=== PATIENT | female | born 1995 | race African-American/Black ===

== ENCOUNTER 2024-07-12 06:57 | Emergency (ER) | payer BC, SELFPAY ==
--- NOTE | ~2024-07-12 | CT_ITS ---
EXAMINATION: CTA chest PE abdomen pel DATE: 07/12/2024 09:24 INDICATION: COVID and prior pulmonary emboli presenting with abdominal pain, fevers chills and nausea . TECHNIQUE: Computed tomography (CT) pulmonary angiogram of the chest was performed with 100 mL Omnipa que-350 intravenous contrast. Additional 3D reconstructions utilizing coronal maximum intensity proje ction (MIP) were performed. CT of the abdomen and pelvis was performed with intravenous contrast util izing the same contrast bolus following a short delay. Automated exposure control and iterative recon struction technique were employed. The dose-length product was 1804.64 mGy-cm. COMPARISON: None FINDINGS: Chest: No pulmonary embolism. No pneumonia, pulmonary edema, pleural effusion or pneumothorax. Heart size is normal. No pericardial effusion. Thoracic aorta is normal in caliber with no dissection. Small amoun t of residual thymic tissue in the anterior mediastinum. No pathologically enlarged thoracic lymphade nopathy. 1.7 x 1.0 cm subcutaneous nodule with smooth margins at the upper inner right breast. Bones are unremarkable. Abdomen/pelvis: Liver, gallbladder, spleen, pancreas, bilateral adrenal glands and kidneys are normal. Bowels includi ng the appendix are normal. Decompressed bladder is unremarkable. The uterus is not identified and lyn s likely been surgically resected. 2.0 cm peripherally enhancing corpus luteum cyst at the right ovar y. Trace amount of likely physiologic free fluid in the deep pelvis. No abscess or free intraperitone al gas. No pathologically enlarged abdominal or pelvic lymphadenopathy. Mild lumbar levocurvature wit h mild spondylosis. IMPRESSION: 1. No pulmonary embolism or other acute cardiopulmonary disease. 2. 2 cm right ovarian corpus luteum cyst. No acute intra-abdominal/pelvic process. Reviewed, dictated and finalized at location B. T GRINDER IMPRESSION: 1. No pulmonary embolism or other acute cardiopulmonary disease. 2. 2 cm right ovarian corpus luteum cyst. No acute intra-abdominal/pelvic proce ss.
[2024-07-12 07:18] VITALS: BP 132/92; PULSE 89; RESP 20; TEMP 37.5; O2SAT 100
[2024-07-12 08:30] LABS: Influenza A QL RT-PCR Negative (Negative); Influenza B QL RT-PCR Negative (Negative); RSV RNA, RT-PCR Negative (Negative); SARS-CoV-2 RNA PCR Positive (Negative)
--- NOTE | 2024-07-12 08:33 | ED.GENADULT ---
HPI - General Adult General Chief complaint: Upper Respiratory Infection Stated complaint: headache, body aches, diarrhea Time Seen by Provider: 07/12/24 08:14 History of Present Illness HPI narrative: 29-year-old female presented to the emergency department for evaluation for nausea vomiting diarrhea and associated abdominal pain. Patient reports she began having symptoms on Thursday morning. Patient reports the symptoms have persisted. 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 Patient does have a prior history of pulmonary embolisms approximately 2 years ago secondary to estrogen that she was taking at that time, patient is no longer taking estrogen. Patient also has history of hysterectomy in September of last year. Related Data Allergies Allergy/AdvReac Type Severity Reaction Status Date / Time No Known Allergies Allergy Verified 07/12/24 06:58 Review of Systems Review of Systems: All systems reviewed & are unremarkable except as noted in HPI and below Exam Narrative: APPEARANCE: Ill-appearing HEAD: normocephalic, atraumatic. EYES: PERRLA/EOMI, conjunctivae clear. NOSE: Normal no drainage EARS:TMS clear with good light reflex. THROAT: Pharynx clear, no exudate. NECK: Supple. No adenopathy, no masses. RESPIRATORY: Airway patent, respirations nonlabored. Clear to auscultation bilaterally, no rales, rhonchi, wheezing. CARDIOVASCULAR: Regular rate and rhythm without murmurs rubs or gallops. ABDOMINAL: Diffuse abdominal tenderness MUSCULOSKELETAL: Moves all extremities. Strength/ROM intact, No edema, No calf tenderness. NEURO: Alert. Cranial nerves II through XII intact. Good gait. Good coordination SKIN: Warm, dry. Normal Color Course Vital Signs Vital signs: Vital Signs Temperature 99.5 F 07/12/24 07:18 Pulse Rate 89 07/12/24 07:18 Respiratory Rate 20 07/12/24 07:18 Blood Pressure 132/92 H 07/12/24 07:18 Pulse Oximetry 100 07/12/24 07:18 Oxygen Delivery Room Air 07/12/24 07:18 Temperature 99.5 F 07/12/24 07:18 Pulse Rate 80 07/12/24 11:00 Respiratory Rate 16 07/12/24 11:00 Blood Pressure 131/84 07/12/24 11:00 Pulse Oximetry 100 07/12/24 11:00 Oxygen Delivery Room Air 07/12/24 07:18 Medical Decision Making MDM Narrative Medical decision making narrative: 29-year-old female presents to the emergency department for evaluation for abdominal pain. Patient is afebrile with no leukocytosis and hemoglobin of 13.5. INR is 1.1. Patient has no significant abnormalities on her CMP patient had normal T bili AST ALT alk-phos and lipase. Urine did have high red blood cells and some bacteria. Patient was positive for COVID. Due to patient's prior history pulmonary embolism CTA was ordered and abdomen pelvis was added due to her abdominal pain. CTA showed No pulmonary embolism or other acute cardiopulmonary disease. 2 cm right ovarian corpus luteum cyst. No acute intra-abdominal/pelvic process. Patient did have hematuria but no evidence of ureteral calculi. Patient was encouraged close follow-up with her primary care physician regarding hematuria. Patient family were updated on the results of the workup they are comfortable the plan for discharge and close follow-up. All questions concerns were addressed. Differential Diagnosis Differential Diagnosis: COVID, RSV, influenza, UTI, hematuria Vital Signs Vital Signs: Vital Signs Temperature 99.5 F 07/12/24 07:18 Pulse Rate 89 07/12/24 07:18 Respiratory Rate 20 07/12/24 07:18 Blood Pressure 132/92 H 07/12/24 07:18 Pulse Oximetry 100 07/12/24 07:18 Oxygen Delivery Room Air 07/12/24 07:18 Temperature 99.5 F 07/12/24 07:18 Pulse Rate 80 07/12/24 11:00 Respiratory Rate 16 07/12/24 11:00 Blood Pressure 131/84 07/12/24 11:00 Pulse Oximetry 100 07/12/24 11:00 Oxygen Delivery Room Air 07/12/24 07:18 Lab Data Lab results reviewed: Yes I reviewed the patient's lab results. 07/12/24 08:54 07/12/24 08:54 Labs: Lab Results 07/12/24 07/12/24 07/12/24 Range/Units 07:48 08:54 09:11 WBC 6.5 (4.5-10.0) K/mm3 RBC 5.21 (4.2-5.4) M/mm3 Hgb 13.5 (12.0-15.0) g/dL Hct 42.9 (37.0-47.0) % MCV 82.3 (80-100) fl MCH 25.9 L (26-34) pg MCHC 31.5 L (32-36) g/dl RDW 15.1 H (11.5-14.5) % Plt Count 183 (150-375) k/mm3 MPV 10.3 (7.4-10.4) fl Immature Gran % (Auto) 0.3 (0-0.5) % Neut % (Auto) 74.3 H (45.5-73.1) % Lymph % (Auto) 11.5 L (18.3-44.2) % [place] % (Auto) 13.4 H (2.6-8.5) % Eos % (Auto) 0.0 (0-4.4) % Baso % (Auto) 0.5 (0.2-1.2) % Lymph # (Auto) 0.75 L (0.9-3.2) K/mm3 [place] # (Auto) 0.9 H (0.1-0.6) K/mm3 Eos # (Auto) 0.0 (0-0.3) K/mm3 Baso # (Auto) 0.0 (0.0-0.1) K/mm3 Abs Immat Gran (auto) 0.02 (0.00-0.031) K/mm3 Absolute Neuts (auto) 4.8 (1.3-6.7) K/mm3 Absolute Nucleated RBC 0.000 (0.0-0.012) K/mm3 Nucleated RBC % 0.0 (0.0-0.2) % PT 14.3 (11.1-14.7) Seconds INR 1.1 APTT 21.4 L (22.3-36.8) Seconds Sodium 136 L (137-145) mmol/L Potassium 4.2 (3.4-5.0) mmol/L Chloride 101 (98-107) mmol/L Carbon Dioxide 26 (22-30) mmol/L Anion Gap 9 (4-12) mmol/L BUN 9 (7-17) mg/dL Creatinine 0.90 (0.7-1.0) mg/dL Estim Creat Clear Calc 106 ml/min Estimated GFR > 60 (59 - ) Glucose 90 (65-110) mg/dL Lactic Acid 1.0 (0.7-2.0) mmol/L Calcium 8.9 (8.4-10.2) mg/dL Total Bilirubin 0.6 (0.2-1.3) mg/dL AST 30 (14-36) U/L ALT 30 (6-35) U/L Alkaline Phosphatase 80 (38-126) U/L Total Protein 8.0 (6.3-8.2) g/dL Albumin 4.2 (3.5-5.1) g/dL Lipase 71 (23-300) U/L Urine Color Yellow (Yellow) Urine Appearance Cloudy H (Clear) Urine pH 7.5 (5.0-9.0) Ur Specific [place] 1.021 (1.001-1.035) Urine Protein Negative (Negative) mg/dL Urine Glucose (UA) Negative (Negative) mg/dL Urine Ketones Negative (Negative) mg/dL Ur Blood (Man) Non-hemolyzed trace H (Negative) Urine Nitrate Negative (Negative) Urine Bilirubin Negative (Negative) Urine Urobilinogen 1.0 (<2.0) mg/dL Leukocyte Esterase Rfl Negative (Negative) JAYLEN/UL Urine RBC 6-10 H (0-2) /hpf Urine WBC 0-5 (0-3) /hpf Ur Squamous Epith Cells Moderate (Few) /hpf Urine Bacteria 1+ H /hpf Urine Casts 0-2 Influenza A (RT-PCR) Negative (Negative) Influenza B (RT-PCR) Negative (Negative) RSV (RT-PCR) Negative (Negative) SARS-CoV-2 RNA (RT-PCR) Positive A (Negative) Imaging Data Radiologist's impression: Impressions Chest/Abdomen/Pelvis CTA 07/12/24 09:35 IMPRESSION: 1. No pulmonary embolism or other acute cardiopulmonary disease. 2. 2 cm right ovarian corpus luteum cyst. No acute intra-abdominal/pelvic process. Discharge Plan Discharge Clinical Impression: COVID, Nausea vomiting and diarrhea, Hematuria Patient Disposition: Home, Self-Care Condition: Stable Instructions: Antibiotic Form, COVID-19 (Coronavirus Disease 2019) (ED) Additional Instructions: You did test positive for COVID. Zofran as needed for nausea control. Liquid diet for the next 1-3 days. Tylenol and ibuprofen for pain control. Have close follow-up with her primary care physician. Albuterol inhaler for shortness breath and Tessalon Perles for cough. Patient Language: Namibian Prescriptions: New benzonatate 100 mg capsule 100 mg PO TID PRN (Reason: cough) Qty: 14 0RF albuterol sulfate 90 mcg/actuation HFA aerosol inhaler 1 puff inhalation QID Qty: 6.7 0RF ondansetron 4 mg tablet,disintegrating 4 mg PO Q8H PRN (Reason: nausea and vomiting) Qty: 14 0RF Follow-up/Referrals: PHYSICIAN,SOFTWARE QUALITY ASSURANCE ENGINEER [Non-Staff] -
[2024-07-12 08:53] VITALS: BP 123/87; PULSE 96; RESP 24; O2SAT 100
[2024-07-12] MEDS: ONDANSETRON INJ 4 MG/2 ML VIAL IV PUSH (08:56)
[2024-07-12] MEDS: HYDROmorphone HCL INJ (*CRX) 1 MG/ML SYR 0.5 MG IV PUSH (08:56)
[2024-07-12] MEDS: SODIUM CHLORIDE 0.9% IV 1,000 ML 999 ML IV CONT (08:56)
--- OUTSIDE RECORDS SUMMARY | 2024-07-12 09:06 | XMS_ITS | Data Portability ---
Author Organization [facility] Address [address] [place] [address] Assessment No assessment recorded. Plan of Treatment Reminders Order Date Submit Date Provider Last Modified By Organization Details Last Modified Time Details Appointments None recorded. Lab rapid strep group A, throat 2014 015 KASH In-Office Order, Internal Use Only DO Not Attach Compendium DO Not Attach Compendium, Do Not Delete/merge, [id number] 5 17:13:34 CT + NG RNA, urine 2014 015 [facility], [address] [place] [address], [address], [place], [address], 5 17:24:42 HIV (1+2) Ab, rapid, unspecified specimen 2014 015 KASH In-Office Order, Internal Use Only DO Not Attach Compendium DO Not Attach Compendium, Do Not Delete/merge, [id number] 5 17:12:53 urinalysis, dipstick 2014 KASH In-Office Order, Internal Use Only DO Not Attach Compendium DO Not Attach Compendium, Do Not Delete/merge, [id number] 5 17:14:28 test, urine 2014 015 KASH In-Office Order, Internal Use Only DO Not Attach Compendium DO Not Attach Compendium, Do Not Delete/merge, [id number] 5 17:13:10 Referral None recorded. Procedures None recorded. Surgeries None recorded. Imaging None recorded. Medication Orders None recorded. Patient TargetsNo targets recorded. Patient Instructions Encounter Date Encounter Id Patient Instructions Last Modified By Organization Details Last Modified Time 04/25/2015 [id number] when your child IS overweight: care instructions [email or web address] Not available 04/25/2015 17:12:16 frequent urination: care instructions [email or web address] Not available 04/25/2015 17:12:16 Reason for Referral None Reported. Results Created Date Observation Date Name Description Value Unit Range Abnormal Flag Note LastModifiedBy Organization Detail LastModifiedTime 04/25/20 15 04/25/2015 pregn jerrica test, urine HCG negati ve Not Available In-Office Order Internal Use Only DO Not Attach Compendium DO Not Attach Compendium, Do Not Delete/merge, [id number] 04/25/2015 15:17:45 04/25/20 15 04/25/2015 HIV (1+2) Ab, rapid , unspe cifie d speci men Rapid HIV negati ve Not Available In-Office Order Internal Use Only DO Not Attach Compendium DO Not Attach Compendium, Do Not Delete/merge, [id number] 04/25/2015 15:17:45 04/25/20 15 04/25/2015 urina lysis , dipst ick Leukocytes Negati ve Not Available In-Office Order Internal Use Only DO Not Attach Compendium DO Not Attach Compendium, Do Not Delete/merge, [id number] 04/25/2015 15:10:08 04/25/20 15 04/25/2015 urina lysis , dipst ick Nitrite negati ve Not Available In-Office Order Internal Use Only DO Not Attach Compendium DO Not Attach Compendium, Do Not Delete/merge, [id number] 04/25/2015 15:10:08 04/25/20 15 04/25/2015 urina lysis , dipst ick Urobilinogen .2 Not Available In-Of fice Order Internal Use Only DO Not Attach Compendium DO Not Attach Compendium, Do Not Delete/merge, [id number] 04/25/2015 15:10:08 04/25/20 15 04/25/2015 urina lysis , dipst ick Protein Negati ve Not Available In-Office Order Internal Use Only DO Not Attach Compendium DO Not Attach Compendium, Do Not Delete/merge, [id number] 04/25/2015 15:10:08 04/25/20 15 04/25/2015 urina lysis , dipst ick pH 7.0 Not Available In-Office Order Internal Use Only DO Not Attach Compendium DO Not Attach Compendium, Do Not Delete/merge, 04/25/2015 15:10:08 04/25/20 15 04/25/2015 urina lysis , dipst ick Blood Negati ve Not Available In-Office Order Internal Use Only DO Not Attach Compendium DO Not Attach Compendium, Do Not Delete/merge, 04/25/2015 15:10:08 04/25/20 15 04/25/2015 urina lysis , dipst ick Specific [place] 1.010 Not Available In-Off ice Order Internal Use Only DO Not Attach Compendium DO Not Attach Compendium, Do Not Delete/merge, 04/25/2015 15:10:08 04/25/20 15 04/25/2015 urina lysis , dipst ick Ketone Negati ve Not Available In-Office Order Internal Use Only DO Not Attach Compendium DO Not Attach Compendium, Do Not Delete/merge, 04/25/2015 15:10:08 04/25/20 15 04/25/2015 urina lysis , dipst ick Bilirubin Negati ve Not Available In-Office Order Internal Use Only DO Not Attach Compendium DO Not Attach Compendium, Do Not Delete/merge, 04/25/2015 15:10:08 04/25/20 15 04/25/2015 urina lysis , dipst ick Glucose Negati ve Not Available In-Office Order Internal Use Only DO Not Attach Compendium DO Not Attach Compendium, Do Not Delete/merge, 04/25/2015 15:10:08 04/25/20 15 04/25/2015 urina lysis , dipst ick Appearance Clear Not Available In-Offi ce Order Internal Use Only DO Not Attach Compendium DO Not Attach Compendium, Do Not Delete/merge, 04/25/2015 15:10:08 04/25/20 15 04/25/2015 urina lysis , dipst ick Color Yellow Not Available In-Office Order Internal Use Only DO Not Attach Compendium DO Not Attach Compendium, Do Not Delete/merge, 04/25/2015 15:10:08 04/25/20 15 04/25/2015 rapid strep group A, throa t Strep negati ve Not Available In-Office Order Internal Use Only DO Not Attach Compendium DO Not Attach Compendium, Do Not Delete/merge, [id number] 04/25/2015 15:10:08 04/25/20 15 04/26/2015 chlam ydia + gonor mirta DNA panel , unspe cifie d speci men chlamydia trachomatis, RASHAD Negati ve negati ve Not Available [facility] (Lab) [address] [place], [address], 04/26/2015 14:30:26 04/25/20 15 04/26/2015 chlam ydia + gonor mirta DNA panel , unspe cifie d speci men neisseria gonorrhoeae, RASHAD Negati ve negati ve Not Available [facility] (Lab) [address], [place], [address], 04/26/2015 14:30:26 04/25/20 15 04/26/2015 chlam ydia + gonor mirta DNA panel , unspe cifie d speci men please note: Commen t Accep table speci mens for this test are male ureth ral swab, endoc ervic al swab and liqui d based pap speci mens, vagin al swabs in APTIM A trans ports and first void urine . See Rachel mustafa of [employer] for test numbe r for recta l and phary ngeal speci mens. Not Available [facility] (Lab) [address], [place], [address], 04/26/2015 14:30:26 Result Notes None recorded. Problems Name Problem SNOMED Code Status Onset Date Resolution Date Notes Provider Name and Address Organization Details Recorded Time Obesity 341857215 Active Latesha Raya MD Attn: Gonzalo irizarry,[address] [facility], [place], [address], [facility] 5 15:23:43 Pharyngitis 823816245 Active Latesha Raya MD Attn: Gonzalo irizarry,[address] [facility], [place], [address], [facility] 5 15:23:43 Increased frequency of urination 509482564 Active Latesha Raya MD Attn: Gonzalo irizarry,[address] [facility], [place], [address], [facility] 5 15:23:43 Problem Notes None recorded. Medical Equipment None Reported. Allergies No known drug allergies Medications Name Sig Start Date Stop Date Status Note LastModified by Organization Details LastModified Time hydrocodone 5 mg-acetamino phen 325 mg tablet TAKE 1 TABLET BY MOUTH EVERY 6 HOURS NEEDED FOR PAIN active Not Available Not Available No t Available omeprazole 40 mg capsule,avila yed release TAKE 1 CAPSULE BY MOUTH DAILY BEFORE BREAKFAST active Not Available Not Available No t Available oxycodone-ac etaminophen 5 mg-325 mg tablet TAKE 1 TABLET BY MOUTH EVERY 4 HOURS NEEDED active Not Available Not Available No t Available ibuprofen 600 mg tablet TAKE 1 TABLET BY MOUTH EVERY 6 HOURS active Not Available Not Available No t Available enoxaparin 40 mg/0.4 mL subcutaneous syringe INJECT 40MG SUBCUTANEOU SLY ONCE DAILY active Not Available Not Available No t Available nitrofuranto in monohydrate/ macrocrystal s 100 mg capsule TAKE 1 CAPSULE BY MOUTH EVERY 12 HOURS active Not Available Not Available No t Available Vitals Date Recorded Body height Body mass index (BMI) Body temperature Body weight Systolic blood pressure Diastolic blood pressure Provider Name and Address Organization Details Last Updated DateTime 5 165.1 cm 35.6 kg/m2 97.8 [degF] 07606.7 6718 g 118 mm[Hg] 62 mm[Hg] Ila Yan MA [facility] 5 14:53:27 Social History Question Answer Notes LastModified by Organizat ion Details LastModified Time Tobacco Smoking Status Never Smoker Latesha Hemphill MD Attn: Mildred,[address] [facility], [place], [address], [facility] 04/25/2015 15:19:45 What Type Of Diet Are You Following? REGULAR Information not available 04/25/2015 What Is Your Home Situation? Mother Information not available 04/25/2015 Car Seat Type Or Seat Belt? Seat Belt Information not available 04/25/2015 Parent Involvement? Both Parents Involved [email or web address] Information not available 04/25/2015 Do You Have Any Siblings? Yes [email or web address] Information not available 04/25/2015 Year In School 12 Informatio n not available 04/25/2015 Sex: Unknown Functional Status None recorded. Mental Status None recorded. Family History Nothing Reported. Medical History No medical history recorded. Gynecological HistoryNo gynecological history recorded. Obstetrics History GPAL:G 0 P 0 0 0 0 Immunizations Vaccine Type Date Status Note Provider Nam e and Address Organization Details Recorded Time Influenza, split virus, quadrivalent, PF 5 completed Not Available [facility] 07[facility]2019 02:49:52 Meningococcal MCV4O 5 completed Not Available [facility] 07/02/2019 02:39:16 HPV9 5 completed Not Available [facility] 07/02/2019 02:32:03 Past Encounters Encounter ID Performer Location Encounter Start Date Encounter Closed Date Diagnosis/Indication Diagnosis SNOMED-CT Code Diagnosis ICD10 Code Diagnosis Note [id number] Latesha buitrago MD [facility] [address] [place] [address] 04/25/2015 14:31:13 05/16/2015 17:21:13 Well child 700125891 Z00.129 Anticipato ry guidance given physical form given to pt x 1 [place] out of state MCV4#2, Flu, HPV#3 today Obesity 931659495 E66.9 Pharyngitis 695247073 J0 2.9 rapid strep neg Increased frequency of urination 809113646 R35.0 u/a neg urine hcg neg Health Concerns Section Related Observation LastModified by Organization Detai ls LastModified Time None Recorded Concern Status LastModified by Organization Details LastModified Time None Recorded Advance Directives Directive None Recorded Payers Encounter Date Sequence Insurance Name Policy Number Policy Coronel Covered Member ID Coronel Member ID Guarantor Name 04/25/2015 1 [facility] - DOS PRIOR TO 2020 (MEDICAID REPLACEMENT - HMO) Erica Kaur [id number] Marina Lock Notes Date Note Type Note Provider Name and Address Organization Details Recorded Time 04/25/2015 text/html throat hurting on weekend; no fever; no v/d; 12th grade, peeing and pooping; peeing a lot; sleeping ok; wearing seatbelt; brushing teeth; work at [employer]; missed work thu and thursday Latesha Hemphill MD Attn: Accounting,[address] [place], [address], [place] [facility] 04/25/2015 15:24:06 OBGyn Episode No OBEpisode recorded.
--- OUTSIDE RECORDS SUMMARY | 2024-07-12 09:06 | XMS_ITS | Encounter Summary ---
Author Organization [facility] Address [address] [place] [address] Phone Care Team Providers Care Educational Audiologist Name Role Phone Provider, None Primary Care Provider Unavailabl e Encounter Details Date Type Department Care Team (Late st Contact Info) Description 06/11/2023 Lab Requisition [facility] Services [address] [place] [address] System, Referring Not In [place] Social History Tobacco Use Types Packs/Day Years Used Date Smoking Tobacco: Never Assessed Comments Unknown Sex and Gender Information Value Date Recorded Sex Assigned at Not on file Legal Sex Female 3:55 PM MANAGER STERILE Gender Identity Not on file Sexual Orientation Not on file documented as of this encounter Plan of Treatment Not on file documented as of this encounter Procedures Procedure Name Priority Date/Time Associated Diagnosis Comments QUANTIFERON-TB GOLD PLUS Routine 06/11/2023 3:03 PM MANAGER STERILE MMRV PANEL Routine 06/11/2023 3:03 PM MANAGER STERILE MUMPS IGG Routine 06/11/2023 3:03 PM MANAGER STERILE HERPES ZOSTER (VARICELLA) IGG Routine 06/11/2023 3:03 PM MANAGER STERILE RUBEOLA (MEASLES) IGG Routine 06/11/2023 3:03 PM MANAGER STERILE RUBELLA IMMUNITY IGG Routine 06/11/2023 3:03 PM MANAGER STERILE HEPATITIS B SURFACE ANTIBODY (HBSAB) Routine 06/11/2023 3:03 PM MANAGER STERILE documented in this encounter Results * (ABNORMAL) HERPES ZOSTER (VARICELLA) IGG (06/11/2023 3:03 PM MANAGER STERILE) VARICELLA ZOSTER IGG 0.6(L) >=1.1 AI 06/12/2023 4:22 AM MANAGER STERILE [facility] Blood No Phlebotomy Charged / Unknown 06/11/2023 3:03 PM MANAGER STERILE 06/11/2023 3:05 PM MANAGER STERILE Narrative [facility] - 06/12/2023 4:22 AM MANAGER STERILE <= 0.8 Negative. ??No detectable VZV IgG antibody. 0.9 - 1.0 Equivocal >=1.1 Positive Antibody testing was performed by multiplex flow immunoassay on the BioPlex platform. us Referring Not In System IMMUNOLOGY ORDERABLES Fi nal Result Performing Organization Address [facility] Co de Phone Number [facility] [address] [place] [address], [place] * RUBEOLA (MEASLES) IGG (06/11/2023 3:03 PM MANAGER STERILE) MEASLES AB IGG 4.8 >=1.1 AI 06/12/2023 4:22 AM MANAGER STERILE [facility] Blood No Phlebotomy Charged / Unknown 06/11/2023 3:03 PM MANAGER STERILE 06/11/2023 3:05 PM MANAGER STERILE Narrative [facility] - 06/12/2023 4:22 AM MANAGER STERILE <= 0.8 Negative. ??No detectable Measles IgG antibody. 0.9 - 1.0 Equivocal >=1.1 Positive Antibody testing was performed by multiplex flow immunoassay on the BioPlex platform. us Referring Not In System IMMUNOLOGY ORDERABLES Fi nal Result Performing Organization Address [facility] Co de Phone Number [facility] [address] [place] [address], [place] * RUBELLA IMMUNITY IGG (06/11/2023 3:03 PM MANAGER STERILE) RUBELLA IMMUNITY Immune Immune, Invalid 06/12/2023 4:22 AM MANAGER STERILE [facility] Blood No Phlebotomy Charged / Unknown 06/11/2023 3:03 PM MANAGER STERILE 06/11/2023 3:05 PM MANAGER STERILE Narrative [facility] - 06/12/2023 4:22 AM MANAGER STERILE Antibody testing was performed by multiplex flow immunoassay on the BioPlex platform. us Referring Not In System CHEMISTRY ORDERABLES Fin al Result Performing Organization Address [facility] Co de Phone Number [facility] [address] [place] [address], [place] * MUMPS IGG (06/11/2023 3:03 PM MANAGER STERILE) Mumps Ab IgG 3.1 >=1.1 AI 06/12/2023 4:22 AM MANAGER STERILE [facility] Blood No Phlebotomy Charged / Unknown 06/11/2023 3:03 PM MANAGER STERILE 06/11/2023 3:05 PM MANAGER STERILE Narrative [facility] - 06/12/2023 4:22 AM MANAGER STERILE <= 0.8 Negative. ??No detectable Mumps IgG antibody. 0.9 - 1.0 Equivocal >=1.1 Positive Antibody testing was performed by multiplex flow immunoassay on the BioPlex platform. us Referring Not In System IMMUNOLOGY ORDERABLES Fi nal Result Performing Organization Address [facility] Co de Phone Number [facility] [address] [place] [address], [place] * QUANTIFERON-TB GOLD PLUS (06/11/2023 3:03 PM MANAGER STERILE) NIL CONTROL 0.02 <8.01 IU/mL 06/14/2023 12:05 PM MANAGER STERILE [facility] TB ANTIGEN 1 0.03 <0.35 IU/mL 06/14/2023 12:05 PM MANAGER STERILE [facility] TB ANTIGEN 2 0.00 <0.35 IU/mL 06/14/2023 12:05 PM MANAGER STERILE [facility] MITOGEN CONTROL 9.98 >0.49 IU/mL 06/14/20 12:05 PM [facility] INTEPRETATION TB NEGATIVE NEGATIVE, NEGATIVE (TB antigen response less than 25% of internal negative control value) 06/14/2023 12:05 PM [facility] Comment:No immune response t o Mycobacterium tuberculosis antigens was noted. M. tuberculosis infection unlikely. Blood No Phlebotomy Charged / Unknown 06/11/2023 3:03 PM MANAGER STERILE 06/11/2023 3:05 PM MANAGER STERILE Narrative [facility] - 06/14/2023 12:05 PM MANAGER STERILE A POSITIVE QUANTIFERON-TB GOLD PLUS RESULT SHOULD NOT BE THE SOLE OR DEFINITIVE BASIS FOR DETERMINING INFECTION WITH M.TUBERCULOSIS. Diagnosing or excluding tuberculosis disease, and assessing the probability of LTBI, requires a combination of epidemiological, historical, medical and diagnostic findings (e.g., acid fast bacilli (AFB) smear and culture, chest xray) that should be taken into account when interpreting QFT-Plus results. Furthermore, the magnitude of the measured gamma interferon level cannot be correlated to stage or degree of infection, level of immune responsiveness, or likelihood for progression to active disease. The Nil control adjusts for background (e.g., elevated levels of circulating gamma interferon or presence of heterophile antibodies). The Mitogen control serves as an internal positive control and verifies each specimen tested can produce a gamma interferon response. Low mitogen may occur with insufficient lymphocytes, reduced lymphocyte activity due to improper specimen handling, filling/mixing of the mitogen tube, or inability of the patient's lymphocytes to generate gamma interferon. Infection with other Mycobacteria, including M. kansasii, M. szulgai, and M. marinum, may cause false positive results. A negative QuantiFERON-TB Gold Plus result does not preclude the possibility of M. tuberculosis infection or tuberculosis disease: false negative results can be due to incorrect blood sample collection/ improper handling of the specimen, stage of infection (e.g., specimen obtained prior to the development of cellular immune response), co-morbid conditions which affect immune function, or other individual immunological factors. The minimum number of lymphocytes required for a reliable test has not been established and may also be variable. Diagnostic testing for Mycobacterium tuberculosis using Interferon Gamma Release Assays should follow applicable published guidelines, including when testing in populations such as children, women, and HIV-infected or otherwise immunocompromised individuals. https://www.cdc.gov/tb/publications/guidelines/testing.htm us Referring Not In System IMMUNOLOGY ORDERABLES Fi nal Result Performing Organization Address [facility] Co de Phone Number [facility] [address] [place] [address], [place] * HEPATITIS B SURFACE ANTIBODY (HBSAB) (06/11/2023 3:03 PM MANAGER STERILE) HEPATITIS B SURFACE ANTIBODY <8.00 mIU/mL [facility] ARCH [id number] 06/11/2023 9:41 PM MANAGER STERILE [facility] Comment:Individual is consid ered not immune to HBV infection. Blood No Phlebotomy Charged / Unknown 06/11/2023 3:03 PM MANAGER STERILE 06/11/2023 3:05 PM MANAGER STERILE us Referring Not In System CHEMISTRY ORDERABLES Fin al Result Performing Organization Address [facility] Co de Phone Number [facility] [address] [place] [address], [place] documented in this encounter Visit Diagnoses Not on filedocumented in this encounter Care Teams Educational Audiologist Relationship Specialty Start Date End Date Provider, None [place] PCP - General 06/11/23 documented as of this encounter
--- OUTSIDE RECORDS SUMMARY | 2024-07-12 09:06 | XMS_ITS | Data Portability ---
Author Organization [facility] , [facility] Address [address] [place] [address] Assessment Encounter Date Assessment Date Assessment LastModified by Organization Details LastModified Time 09/12/2022 09/12/2022 AUB: Need records from Dr. Valentine and Gianna Need for labs, US and EMB discussed. Baseline w/u ordered. Options for bleeding control - NSAIDs + E free medical tx recommended initially until w/u complete. Desires to be on Depo for now- ordered. MO: encouraged lifestyle modifications and wt reduction Return for US and EMB [email or web address] Not available 11/20/2022 23:12:34 Plan of Treatment Reminders Order Date Submit Date Provider Last Modified By Organization Details Last Modified Time Details Appointments None recorded. Lab prolactin, serum 2022 023 [facility], [address] [place], [address], 3 16:00:08 CMP, serum or plasma 2022 023 [facility], [address] [place], [address], 3 16:00:23 CBC w/ auto diff 2022 023 [facility], [address] [place], [address], 3 16:00:16 lh + FSH, serum 2022 023 [facility], [address] [place], [address], 3 16:00:22 TSH, serum, reflex free T4 2022 023 [facility], [address] [place], [address], 3 16:00:30 hemoglobin A1c, QN, blood [address] [facility], [address] [place], [address], 3 16:00:26 dhea-sulfat e, serum [address] [facility], [address] [place], [address], 3 16:00:10 testosteron e, free + total, serum 2022 023 [employer] [facility], [address] [place], [address], 3 11:09:31 PT/PTT, plasma 2022 023 [employer] [facility], [address] [place], [address], 3 11:09:31 Referral None recorded. Procedures None recorded. Surgeries None recorded. Imaging US, transvagina l 2022 023 [email or web address] Not available 3 15:52:11 Medication Orders Depo-[employer] a 150 mg/mL intramuscul ar syringe 2022 023 [facility] [address] In [facility], [address] [place], [address], 3 15:18:34 Patient TargetsNo targets recorded. Patient InstructionsNo instructions recorded. Reason for Referral None Reported. Results Created Date Observation Date Name Description Value Unit Range Abnormal Flag Note LastModifiedBy Organization Detail LastModifiedTime 09/27/19 23 09/26/2022 PROLA CTIN prolactin Not Available [facility] [address] [place], [address], 09/26/2022 16:00:08 09/27/19 23 09/26/2022 DHEA- S DHEA-S Not Available [address], [address], 09/26/2022 16:00:10 09/27/19 23 09/26/2022 CBC (INCL UDES DIFF/ PLT) CBC (includes diff/plt) Not Available [facility] [address], [address], 09/26/2022 16:00:16 09/27/19 23 09/26/2022 FSH AND LH FSH and LH Not Available [address], [address], 09/26/2022 16:00:22 09/27/19 23 09/26/2022 COMPR EHENS CELESTINA METAB OLIC PANEL comprehensiv e metabolic panel Not Available [facility] and [address], [address], 09/26/2022 16:00:23 09/27/19 23 09/26/2022 HEMOG LOBIN A1C hemoglobin A1C Not Available [address], [address], 09/26/2022 16:00:26 09/27/19 23 09/26/2022 TSH W/ REFLE X TSH w/ reflex Not Available [facility] and [address], [address], 09/26/2022 16:00:30 Result Notes None recorded. Procedures Surgical History Date Name Laterality Status Provider Name and Address Organization Details Recorded Time Dilation and curettage completed ELYSSA SALAZAR MD [address] [facility], [place], [address], [facility] [employer] 09/12/2022 14:49:25 Imaging Results None recorded. Procedure Notes None recorded. Medical Equipment None Reported. Allergies No known drug allergies Medications Name Sig Start Date Stop Date Status Note LastModified by Organization Details LastModified Time medroxyproge sterone 10 mg tablet TAKE 1 TABLET BY MOUTH DAILY active Not Available Not Available Not Available Depo-Provera 150 mg/mL intramuscula r syringe Inject 1 mL every 3 months by intramuscul ar route. 2022 active Not Available Not Available Not Avai lable Vitals Date Recorded Body height Provider Name an d Address Organization Details Last Updated DateTime 09/12/2022 157.48 cm Suha Shady [facility] [facility] 09/12/2022 14:18:49 Date Recorded Body mass index (BMI) Body weight Provider Name and Address Organization Details Last Updated DateTime 09/12/2022 51.1 kg/m2 394008.43 g [facility] [employer] [facility] 09/12/2022 14:18:58 Date Recorded Body temperature Provider Name a nd Address Organization Details Last Updated DateTime 09/12/2022 97.1 [degF] [facility] 09/12/2022 14:19:01 Date Recorded Systolic blood pressure Diastolic blood pressure Provider Name and Address Organization Details Last Updated DateTime 09/12/2022 120 mm[Hg] 82 mm[Hg] [facility] 09/12/2022 14:18:47 Social History None recorded. Functional Status None recorded. Mental Status None recorded. Family History Nothing Reported. Medical History No medical history recorded. Gynecological HistoryNo gynecological history recorded. Obstetrics History GPAL:G 0 P 0 0 0 0 Past Encounters Encounter ID Performer Location Encounter Start Date Encounter Closed Date Diagnosis/Indication Diagnosis SNOMED-CT Code Diagnosis ICD10 Code Diagnosis Note [id number] ELYSSA MCKEON MD [facility] [address] [place] [address] 09/12/2022 12:03:19 09/15/2022 13:29:39 Abnormal uterine bleeding 9362892490 9100 N93.9 Body mass index 40+ - severely obese 362868601 Z68.43 History of pulmonary embolus 314411480 Z86.711 Health Concerns Section Related Observation LastModified by Organization Detai ls LastModified Time None Recorded Concern Status LastModified by Organization Details LastModified Time None Recorded Advance Directives Directive None Recorded Payers Encounter Date Sequence Insurance Name Policy Number Policy Coronel Covered Member ID Coronel Member ID Guarantor Name 09/12/2022 1 [facility] (MEDICAID REPLACEMENT - HMO) [id number] Erica Kaur [id number] Erica Kaur Notes Date Note Type Note Provider Name and Address Organization Details Recorded Time 09/12/2022 text/html Pt referred by for fibroid consult. pt reports bleeding non-stop for months. PHQ9 score 14. Reports hx of DVT/ PE in 06/2021 following 3 m of OCPs. Been off anticoagulation and P after 3 m.Not sexually active currently Bleeding irregular with heavy flow with clots. Has had blood transfusions secondary to anemia. US 06/2021 @ [facility]: uterus 9.9 cmx 6.2 cmx 8.0 cm. ET 1 cm, heterogenous. Likely fibroids. Normal adnexa.MRI pelvis: Fibroid uterus, largest 5x4 cm IM fibroid on the right side of uterine body. ELYSSA SALAZAR MD [address] [facility], [place], [address], [facility] - [facility] [facility] 11/20/2022 23:12:54 OBGyn Episode No OBEpisode recorded.
--- OUTSIDE RECORDS SUMMARY | 2024-07-12 09:06 | XMS_ITS | Patient Health Summary ---
Author Organization [facility] Address [address] [address] Care Team Providers Care Employee Relations Representative Name Role Phone Adelaide Beth Josefina ANAND-WOOL BRUSHER Unavailable [phone] Note from [facility],non-owned Affiliates and Associated Physician Practices is amultiple site organization consisting of ambulatory clinics and hospital sitesin [place], [place], [place] and [place]. This disclosure is being madepursuant to the Care Everywhere program and may not contain all information available regarding this patient. Last updated 18.[facility] Allergies * Estrogens(Other) -High Criticality Medications * Be aware that medications may not be up to date on this document. Alwaysverify current medications with the patient. * albuterol HFA (Proventil; Ventolin; Proair) 108 (90 Base) MCG/ACT inhaler (Started 07/19/2021) Inhale 2 (two) puffs by mouth every 6 hours as needed * ibuprofen (Motrin) 600 MG tablet(Started 09/16/2023) Take 1 (one) tablet by mouth every 6 hours 1 refill by 09/15/2024 * omeprazole (PriLOSEC) 40 MG capsule(Started 09/25/2023) Take 1 (one) capsule by mouth daily before breakfast * metroNIDAZOLE vaginal (Metrogel - Vaginal) 0.75 % vaginal gel(Started 04/20/2024) Insert 1 applicator into the vagina at bedtime Active Problems Problem Noted Date Diagnosed Date Iron deficiency anemia due to chronic blood loss 09/15/2023 History of pulmonary embolus (PE) 09/07/2023 Menorrhagia 08/08/2013 Constipation 08/08/2013 Abdominal pain, LLQ (left lower quadrant) 2013 Anemia 08/08/2013 Screening examination for venereal disease 08/08 Obesity 08/08/2013 Social History Tobacco Use Types Packs/Day Years Used Date Smoking Tobacco: Never Smokeless Tobacco: Never Tobacco Cessation:Counseling Given: Not Answered Alcohol Use Standard Drinks/Week Comments No 0 (1 standard drink = 0.6 oz pur e alcohol) PHQ-2 Answer Date Recorded Patient Health Questionnaire-2 Score 0 04/28/2024 Sex and Gender Information Value Date Recorded Sex Assigned at Not on file Gender Identity Not on file Sexual Orientation Not on file Last Filed Vital Signs Vital Sign Reading Time Taken Comments Blood Pressure 120/70 06/27/2024 4:05 PM SIZE WORKER Pulse 98 09/25/2023 10:55 PM CDT Temperature 36.8 ??C (98.2 ??F) 09/25/2023 5:42 PM CD T Respiratory Rate 18 09/25/2023 10:55 PM CDT Oxygen Saturation 98% 09/25/2023 10:55 PM CDT Inhaled Oxygen Concentration - - Weight 112.9 kg (249 lb) 06/27/2024 4:05 PM SIZE WORKER Height 162.6 cm (5' 4 ) 06/27/2024 4:05 PM SIZE WORKER Body Mass Index 42.74 06/27/2024 4:05 PM SIZE WORKER Procedures * HIV-1 HIV-2 ANTIBODY + HIV P24 AG PANEL(Performed 04/18/2024) Performed for STD exposure * HERPES SIMPLEX 1+2 AB IGG SPEC(Performed 04/18/2024) Performed for STD exposure * RPR(Performed 04/18/2024) Performed for STD exposure * HEPATITIS C ANTIBODY(Performed 04/18/2024) Performed for STD exposure * HEPATITIS B SURFACE ANTIGEN W RFLX CONFIRMATION(Performed 04/18/2024) Performed for STD exposure * VAGINITIS PLUS (BV CA CT NG TRICH)(Performed 04/18/2024) Performed for STD exposure * CARDIAC EKG ORDER(Performed 09/28/2023) * URINE MICROSCOPIC ONLY REFLEX TO CULTURE(Performed 09/25/2023) * URINALYSIS REFLEX MICROSCOPIC REFLEX CULTURE(Performed 09/25/2023) * CULTURE URINE(Performed 09/25/2023) * TROPONIN-I HIGH SENSITIVE REFLEX 1HOUR(Performed 09/25/2023) * TROPONIN-I HIGH SENSITIVE BASELINE + 1HR(Performed 09/25/2023) * CT ABDOMEN PELVIS W CONTRAST(Performed 09/25/2023) Performed for Chest pain, unspecified type * CT ANGIO CHEST PULM EMBOLISM(Performed 09/25/2023) Performed for Chest pain, unspecified type * LACTIC ACID BLOOD REFLEX TO REPEAT(Performed 09/25/2023) * COMPREHENSIVE METABOLIC PANEL(Performed 09/25/2023) * CBC W AUTO DIFFERENTIAL(Performed 09/25/2023) * EKG 12-LEAD(Performed 09/25/2023) Performed for Chest pain, unspecified type * CARDIAC RHYTHM STRIP ORDER(Performed 09/18/2023) * BASIC METABOLIC PANEL (CALCIUM TOTAL)(Performed 09/16/2023) * CBC W AUTO DIFFERENTIAL(Performed 09/16/2023) * PATHOLOGY TISSUE EXAM (STL)(Performed 09/15/2023) Performed for Diagnosis unknown * LAB MISC TEST(Performed 09/15/2023) * FL TLH W/T/O 250 G OR LESS(Performed 09/15/2023) * CBC W AUTO DIFFERENTIAL(Performed 09/15/2023) Performed for Iron deficiency anemia due to chronic blood loss * BLOOD TYPE VERIFICATION(Performed 09/15/2023) * ANTIBODY IDENTIFICATION(Performed 09/15/2023) * TYPE + SCREEN PANEL(Performed 09/15/2023) * HCG URINE QUALITATIVE - POCT (IP) INTERFACED(Performed 09/15/2023) * HCG URINE QUAL POCT NOTIFICATION(Performed 09/15/2023) Performed for Iron deficiency anemia due to chronic blood loss * CBC W AUTO DIFFERENTIAL(Performed 08/08/2023) Performed for Abnormal uterine bleeding (AUB) * FERRITIN(Performed 04/23/2023) Performed for Abnormal uterine bleeding (AUB), Iron deficiency anemia due to chronic blood loss, Intramural leiomyoma of uterus * IRON + TRANSFERRIN PANEL(Performed 04/23/2023) Performed for Abnormal uterine bleeding (AUB), Iron deficiency anemia due to chronic blood loss, Intramural leiomyoma of uterus * CBC W AUTO DIFFERENTIAL(Performed 04/23/2023) Performed for Abnormal uterine bleeding (AUB), Iron deficiency anemia due to chronic blood loss, Intramural leiomyoma of uterus * CBC W AUTO DIFFERENTIAL(Performed 04/03/2023) Performed for Abnormal uterine bleeding (AUB), Iron deficiency anemia due to chronic blood loss, Intramural leiomyoma of uterus * CBC W AUTO DIFFERENTIAL(Performed 12/25/2022) Performed for Abnormal uterine bleeding (AUB), Iron deficiency anemia due to chronic blood loss, Intramural leiomyoma of uterus * PATHOLOGY SPECIMEN(Performed 12/08/2022) Performed for Abnormal uterine bleeding (AUB), Iron deficiency anemia due to chronic blood loss * US TRANSVAGINAL NON OB(Performed 11/27/2022) Performed for Iron deficiency anemia due to chronic blood loss, Abnormal uterine bleeding (AUB) * CHLAMYDIA + GC AMPLIFIED PROBE(Performed 11/17/2022) Performed for Iron deficiency anemia due to chronic blood loss, Abnormal uterine bleeding (AUB) * PAP IG LB RFLX HPV APTIMA ASCU(Performed 11/17/2022) Performed for Iron deficiency anemia due to chronic blood loss, Abnormal uterine bleeding (AUB) * IMAGING/RADIOLOGY/XRAY RESULTS ORDER(Performed 07/11/2021) * IMAGING/RADIOLOGY/XRAY RESULTS ORDER(Performed 07/11/2021) * LAB RESULTS ORDER(Performed 08/13/2013) * CHLAMYDIA + GC AMPLIFIED PROBE(Performed 08/08/2013) * VITAMIN D 25-HYDROXY(Performed 08/08/2013) Performed for Menorrhagia * CBC W AUTO DIFFERENTIAL(Performed 08/08/2013) Performed for Menorrhagia * LIPID PROFILE(Performed 08/08/2013) Performed for Menorrhagia * FSH(Performed 08/08/2013) Performed for Menorrhagia * TESTOSTERONE FREE+TOT FEM/CHLD HYPOGNDL MALE(Performed 08/08/2013) Performed for Menorrhagia * LH(Performed 08/08/2013) Performed for Menorrhagia * HCG URINE QUALITATIVE - POCT (IP) BEAKER(Performed 08/03/2013) * US PELVIS W DOPPLER OVARIES(Performed 08/03/2013) Performed for Menorrhagia, Abdominal pain, right lower quadrant * DIFFERENTIAL MANUAL(Performed 08/03/2013) * PT PTT PANEL(Performed 08/03/2013) * LIPASE BLOOD(Performed 08/03/2013) * AMYLASE BLOOD(Performed 08/03/2013) * COMPREHENSIVE METABOLIC PANEL(Performed 08/03/2013) * CBC W AUTO DIFFERENTIAL(Performed 08/03/2013) * DRUG ABUSE URINE PANEL(Performed 08/03/2013) * URINALYSIS REFLEX TO MICROSCOPIC NO CULTURE(Performed 08/03/2013) * CULTURE URINE(Performed 08/03/2013) * URINE MICROSCOPIC ONLY(Performed 08/03/2013) * MRI LOWER EXT ANY JOINT NON CONTRAST LEFT(Performed 04/14/2013) Performed for Pain in joint, lower leg * XR KNEE LEFT 2VW OR LESS(Performed 03/16/2013) * XR TIBIA FIBULA LEFT 2VW(Performed 11/13/2012) Performed for Fall, Left knee pain, Left ankle pain * HCG URINE QUALITATIVE - POCT (IP) BEAKER(Performed 11/13/2012) Results * HIV-1 HIV-2 ANTIBODY + HIV P24 AG PANEL (04/18/2024 4:04 PM SIZE WORKER) HIV Screen 4th Generation w Reflex Non Reactive Non Reactive [facility] INSURANCE BILL Comment: HIV-1/HIV-2 antibodies and HIV-1 p24 antigen were NOT detected. There is no laboratory evidence of HIV infection. HIV Negative Blood BLOOD SPECIMEN / Unknown 04/18/2024 4:04 PM SIZE WORKER 04/18/2024 Narrative [facility] INSURANCE BILL - 04/19/2024 9:13 AM SIZE WORKER Performed at: ??[address] ??[id number] [employer] Pumper: Nick Yusuf PhD, Phone: ??[phone] Salvador Garcia MD LAB - CHEMISTRY ORD ERABLES [facility] INSURANCE BILL [address] [place] [address] * (ABNORMAL) HERPES SIMPLEX 1+2 AB IGG SPEC (04/18/2024 4:04 PM SIZE WORKER) Herpes Simplex Virus I Antibody IgG Type Specific Index Reactive(A) Non Reactive [facility] INSURANCE BILL Comment: Please note reference interval change HSV-1 IgG testing performed using the [employer] HSV-1 IgG assay. Herpes Simplex Virus 2 Antibody IgG Type Specific Non Reactive Non Reactive [facility] INSURANCE BILL Comment: Please note reference interval change Current guidelines and recommendations do not recommend routine screening for HSV-2 in asymptomatic individuals, including those that are . The detection of HSV-2 IgG antibodies in a single sample indicates previous exposure to HSV-2 but does not give information as to the site of HSV infection or the timing of exposure. The predictive value of positive and negative results depends on the population's prevalence and the pretest likelihood of HSV-2. HSV-2 IgG testing performed using the [employer] HSV-2 IgG assay. Blood BLOOD SPECIMEN / Unknown 04/18/2024 4:04 PM SIZE WORKER 04/18/2024 Narrative [facility] INSURANCE BILL - 04/19/2024 9:13 AM SIZE WORKER Performed at: ??[address] ??[id number] [employer]: Nick Yusuf PhD, Phone: ??[phone] Salvador Garcia MD LAB - SEROLOGY ORDE KELLI Performing Organization Address [facility]/ZIP Co de Phone Number [facility] INSURANCE BILL [address] [place] [phone] * RPR (04/18/2024 4:04 PM SIZE WORKER) RPR Non Reactive Non Reactive [facility] INSURANCE BILL Blood BLOOD SPECIMEN / Unknown 04/18/2024 4:04 PM SIZE WORKER 04/18/2024 Narrative [facility] INSURANCE BILL - 04/19/2024 10:14 AM SIZE WORKER Performed at: ??[address] ??[id number] [employer]: Nick Yusuf PhD, Phone: ??[phone] Salvador Garcia MD LAB - CHEMISTRY ORD ERABLES Performing Organization Address City/[facility]/ZIP Co de Phone Number [facility] INSURANCE BILL [address] [place] [address] * HEPATITIS B SURFACE ANTIGEN W RFLX CONFIRMATION (04/18/2024 4:04 PM SIZE WORKER) Hepatitis B Virus Surface Antigen Negative Negative [facility] INSURANCE BILL Blood BLOOD SPECIMEN / Unknown 04/18/2024 4:04 PM SIZE WORKER 04/18/2024 Narrative [facility] INSURANCE BILL - 04/19/2024 9:13 AM SIZE WORKER Performed at: ??01 - [facility] [address] ??[id number] [employer] P[employer]: Nick Yusuf PhD, Phone: ??[phone] Salvador Garcia MD LAB - CHEMISTRY ORD ERABLES Performing Organization Address [facility] Phone Number [facility] INSURANCE BILL [address] [place] [address] * HEPATITIS C ANTIBODY (04/18/2024 4:04 PM SIZE WORKER) Hepatitis C Antibody Non Reactive Non Reactive [facility] INSURANCE BILL Comment: HCV antibody alone does not differentiate between previously resolved infection and active infection. Equivocal and Reactive HCV antibody results should be followed up with an HCV RNA test to support the diagnosis of active HCV infection. Blood BLOOD SPECIMEN / Unknown 04/18/2024 4:04 PM SIZE WORKER 04/18/2024 Narrative [facility] INSURANCE BILL - 04/19/2024 9:13 AM SIZE WORKER Performed at: ??01 - [facility] ??[id number] [employer] P[employer]: Nick Yusuf PhD, Phone: [phone] Salvador Garcia MD LAB - CHEMISTRY ORD ERABLES Performing Organization Address [facility] Phone Number [facility] INSURANCE BILL [address] [place] [address] * (ABNORMAL) VAGINITIS PLUS (BV CA CT NG TRICH) (04/18/2024 3:48 PM SIZE WORKER) Atopobium vaginae Moderate - 1 Score [facility] INSURANCE BILL BVAB 2 High - 2(A) Score [facility] INSURANCE BILL Megashaera High - 2(A) Score [facility] INSURANCE BILL Comment: Calculate total score by adding the 3 individual bacterial vaginosis (BV) marker scores together. ??Total score is interpreted as follows: Total score 0-1: Indicates the absence of BV. Total score ?? 2: Indeterminate for BV. Additional clinical ? data should be evaluated to establish a ? diagnosis. Total score 3-6: Indicates the presence of BV. Nakia albicans RASHAD Negative Negative [facility] INSURANCE BILL Nakia glabrata RASHAD Negative Negative [facility] INSURANCE BILL Trichomonas vaginalis by RASHAD Negative Negative [facility] INSURANCE BILL Chlamydia Trachomatis RASHAD Negative Negative [facility] INSURANCE BILL GC RASHAD Negative Negative [facility] INSURANCE BILL Microbiology ENTIRE VAGINA / Unknown 04/18/2024 3:48 PM SIZE WORKER 04/18/2024 Comment:Vaginal Release to p a Narrative [facility] INSURANCE BILL - 04/20/2024 6:14 AM SIZE WORKER Test(s) 523775- ?Atopobium vaginae; 827598- ?BVAB 2; 085073- ?Megasphaera 1 was developed and its performance characteristics determined by [employer]. It has not been cleared or approved by the Food and Drug Administration. Test(s) 060360-Jdoikky albicans, RASHAD; 091385-Swazpny glabrata, RASHAD was developed and its performance characteristics determined by [employer]. It has not been cleared or approved by the Food and Drug Administration. Performed at: ??[address] ??[id number] [employer]: Jeny Glez MD, Phone: ??[phone] Salvador Garcia MD LAB - MICROBIOLOGY ORDERABLES Performing Organization Address City/State/[facility] Co de Phone Number [facility] INSURANCE BILL [address] [place] [address] * CARDIAC EKG ORDER (09/28/2023 10:18 PM CDT) Narrative 09/28/2023 10:18 PM CDT Ordered by an unspecified provider. Scanned Document CARDIAC SERVICES ORD ERABLES * (ABNORMAL) URINE MICROSCOPIC ONLY REFLEX TO CULTURE (09/25/2023 9:18 PM CDT) Reflex Status Culture to follow 09/25/2023 9:34 PM CDT [facility] RBC UA 6-10(A) 0 - 5 # /hpf 09/25/2023 9:34 PM CDT [facility] WBC UA 6-10(A) 0 - 5 # /hpf 09/25/2023 9:34 PM CDT [facility] Bacteria UA None Seen None Seen 09/25/2023 9:34 PM CDT [facility] Squamous Epithelial Cells 6-10(A) 0 - 5 /hpf 09/25/2023 9:34 PM CDT [facility] Urine URINE SPECIMEN OBTAINED BY CLEAN CATCH PROCEDURE / Unknown Collection / Unknown 09/25/2023 9:18 PM CDT 09/25/2023 9:23 PM CDT Narrative [facility] - 09/25/2023 9:34 PM CDT Janine Norwood WASTEWATER TREATMENT ENGINEER-WOOL BRUSHER LAB - URINALY SIS ORDERABLES [facility] [address] [place] [address] * (ABNORMAL) URINALYSIS REFLEX MICROSCOPIC REFLEX CULTURE (09/25/2023 9:18 PM CDT) Color UA Yellow Straw, Yellow 09/25/2023 9:33 PM CDT [facility] Clarity UA Clear Clear 09/25/2023 9:33 PM CDT [facility] Glucose UA Negative Negative 09/25/2023 9:33 PM CDT [facility] Bilirubin UA Negative Negative 09/25/2023 9:33 PM CDT [facility] Ketone UA Negative Negative 09/25/2023 9:33 PM CDT [facility] Specific [place] UA 1.010 1.005 - 1.030 09/25/2023 9:33 PM CDT [facility] Blood UA 3+(A) Negative 09/25/2023 9:33 PM CDT [facility] pH UA 5.5 5.0 - 8.0 pH 09/25/2023 9:33 PM CDT [facility] Protein UA Trace(A) Negative 09/25/2023 9:33 PM CDT [facility] Urobilinogen UA Negative Negative mg/dL 09/25/2023 9:33 PM CDT [facility] Nitrite UA Negative Negative 09/25/2023 9:33 PM CDT [facility] Leukocyte UA Trace(A) Negative 09/25/2023 9:33 PM CDT [facility] Urine Microscopy Urine microscopy to follow 09/25/2023 9:33 PM CDT [facility] Reflex Status Culture to follow 09/25/2023 9:33 PM CDT [facility] Urine URINE SPECIMEN OBTAINED BY CLEAN CATCH PROCEDURE / Unknown Collection / Unknown 09/25/2023 9:18 PM CDT 09/25/2023 9:23 PM CDT Janine Norwood [facility] - URINALY SIS ORDERABLES [facility] [place] [address] * CULTURE URINE (09/25/2023 9:18 PM CDT) Only the most recent of2 resultswithin the time period is included. Culture Urine <10,000 CFU/mL urogenital brittany MARK 09/27/2023 2:29 AM CDT [facility] Urine URINE SPECIMEN OBTAINED BY CLEAN CATCH PROCEDURE / Unknown Collection / Unknown 09/25/2023 9:18 PM CDT 09/25/2023 9:23 PM CDT Janine Norwood [facility] - MICROBI OLOGY ORDERABLES [facility] [address] [place] [address], [facility] [phone] * TROPONIN-I HIGH SENSITIVE REFLEX 1HOUR (09/25/2023 8:56 PM CDT) Troponin I High Sensitive 4 <=14 ng/L 09/25/2023 9:26 PM CDT [facility] Delta Troponin I HS 09/25/2023 9:26 PM CDT [facility] Comment:Delta value intentio sherie not calculated. Baseline to 1 hour specimen collection interval exceeded. Blood BLOOD SPECIMEN / Unknown Venipuncture / Unknown 09/25/2023 8:56 PM CDT 09/25/2023 9:00 PM CDT Janine Norwood WASTEWATER TREATMENT ENGINEER-WOOL BRUSHER LAB - ASSURANCE AUDITOR RY ORDERABLES [facility] [address] [address] * TROPONIN-I HIGH SENSITIVE BASELINE + 1HR (09/25/2023 7:09 PM CDT) Troponin I High Sensitive 3 <=14 ng/L 09/25/2023 7:35 PM CDT [facility] Blood BLOOD SPECIMEN / Unknown Venipuncture / Unknown 09/25/2023 7:09 PM CDT 09/25/2023 7:09 PM CDT Janine Norwood WASTEWATER TREATMENT ENGINEER-WOOL BRUSHER LAB - ASSURANCE AUDITOR RY ORDERABLES Performing Organization Address [facility] Co de Phone Number [facility] [address] [address] * CT ABDOMEN PELVIS W CONTRAST (09/25/2023 6:40 PM CDT) Anatomical Region Laterality Modality Abdomen, Pelvis Computed Tomogra phy 09/25/2023 7:19 PM CDT Impressions 09/25/2023 7:25 PM CDT IMPRESSION: 1.No evidence of pulmonary embolism. 2.Surgical changes of hysterectomy with trace residual inflammatory changes in the surgical bed. > Interpreting Provider: Soila Celestin MD on 09/25/2023 7:25 PM Narrative 09/25/2023 7:25 PM CDT PROCEDURE(s): CT ABDOMEN PELVIS W CONTRAST, CT ANGIO CHEST PULM EMBOLISM DATE AND TIME OF EXAM(s): 09/25/2023 6:40 PM INDICATION(s): R07.9: Chest pain, unspecified. Chest tightness. Abdominal pain. History of PE. Surgical history of hysterectomy on 2023. Fevers. Chills. COMPARISON(s): None available. TECHNIQUE: CT of the chest was performed, following intravenous contrast administration. Contrast injection rate and acquisition timing were optimized for opacification of the pulmonary arteries for evaluation of pulmonary embolism. Images were obtained at inspiration and viewed in axial (including thin sections), sagittal and coronal planes. Multiplanar 3D MIP images were created and reviewed. Subsequently CT of the abdomen and pelvis was performed. Multiplanar reconstructions were created and reviewed. Dose reduction techniques were utilized. Contrast: IOPAMIDOL 76 % IV SOLN:80 mL FINDINGS: There is no filling defect to suggest pulmonary embolism. The central airways, lungs, and pleural spaces are clear. The heart is normal in size. There is no pericardial effusion. The aorta and pulmonary artery are normal in caliber. The mediastinal structures are unremarkable. The thyroid is unremarkable. The liver is normal in size and morphology. The gallbladder is unremarkable. There is no abnormal intra-or extrahepatic biliary ductal dilation. The pancreas, spleen, and adrenal glands are unremarkable. The kidneys and urinary bladder are unremarkable. There are surgical changes of hysterectomy with trace residual inflammatory changes within the surgical bed. The small and large bowel are normal in wall thickness and caliber. The appendix is normal. There is no masslike lymphadenopathy. There is no free air or fluid. The superficial soft tissues are unremarkable. The osseous structures are unremarkable. Procedure Note Soila Celestin MD - 09/25/2023 PROCEDURE(s): CT ABDOMEN PELVIS W CONTRAST, CT ANGIO CHEST PULM EMBOLISM DATE AND TIME OF EXAM(s): 09/25/2023 6:40 PM INDICATION(s): R07.9: Chest pain, unspecified. Chest tightness. Abdominal pain. Historyof PE. Surgical history of hysterectomy on 2023. Fevers. Chills. COMPARISON(s): None available. TECHNIQUE: CT of the chest was performed, following intravenous contrast administration. Contrast injection rate and acquisition timing were optimized for opacification of the pulmonary arteries for evaluation of pulmonary embolism. Images were obtained at inspiration and viewed inaxial (including thin sections), sagittal and coronal planes. Multiplanar 3DMIP images were created and reviewed. Subsequently CT of the abdomen andpelvis was performed. Multiplanar reconstructions were created and reviewed.Dose reduction techniques were utilized. Contrast: IOPAMIDOL 76 % IV SOLN:80 mL FINDINGS: There is no filling defect to suggest pulmonary embolism. The central airways, lungs, and pleural spaces are clear. The heart is normal in size. There is no pericardial effusion. The aorta and pulmonary artery are normal in caliber. The mediastinal structuresare unremarkable. The thyroid is unremarkable. The liver is normal in size and morphology. The gallbladder is unremarkable. There is no abnormal intra-or extrahepatic biliary ductal dilation. The pancreas, spleen, and adrenal glands are unremarkable. The kidneys and urinary bladder are unremarkable. There are surgical changes of hysterectomy with trace residual inflammatory changes withinthe surgical bed. The small and large bowel are normal in wall thickness and caliber. The appendix is normal. There is no masslike lymphadenopathy. There is no free air or fluid. The superficial soft tissues are unremarkable. The osseous structuresare unremarkable. IMPRESSION: 1.No evidence of pulmonary embolism. 2.Surgical changes of hysterectomy with trace residual inflammatorychanges in the surgical bed. > Interpreting Provider: Soila Celestin MD on 09/25/2023 7:25 PM Janine Norwood WASTEWATER TREATMENT ENGINEER-WOOL BRUSHER CT ORDERABLES * CT ANGIO CHEST PULM EMBOLISM (09/25/2023 6:36 PM CDT) Anatomical Region Laterality Modality Chest Computed Tomogra phy 09/25/2023 7:19 PM CDT Impressions 09/25/2023 7:25 PM CDT IMPRESSION: 1.No evidence of pulmonary embolism. 2.Surgical changes of hysterectomy with trace residual inflammatory changes in the surgical bed. > Interpreting Provider: Soila Celestni MD on 09/25/2023 7:25 PM Narrative 09/25/2023 7:25 PM CDT PROCEDURE(s): CT ABDOMEN PELVIS W CONTRAST, CT ANGIO CHEST PULM EMBOLISM DATE AND TIME OF EXAM(s): 09/25/2023 6:40 PM INDICATION(s): R07.9: Chest pain, unspecified. Chest tightness. Abdominal pain. History of PE. Surgical history of hysterectomy on 2023. Fevers. Chills. COMPARISON(s): None available. TECHNIQUE: CT of the chest was performed, following intravenous contrast administration. Contrast injection rate and acquisition timing were optimized for opacification of the pulmonary arteries for evaluation of pulmonary embolism. Images were obtained at inspiration and viewed in axial (including thin sections), sagittal and coronal planes. Multiplanar 3D MIP images were created and reviewed. Subsequently CT of the abdomen and pelvis was performed. Multiplanar reconstructions were created and reviewed. Dose reduction techniques were utilized. Contrast: IOPAMIDOL 76 % IV SOLN:80 mL FINDINGS: There is no filling defect to suggest pulmonary embolism. The central airways, lungs, and pleural spaces are clear. The heart is normal in size. There is no pericardial effusion. The aorta and pulmonary artery are normal in caliber. The mediastinal structures are unremarkable. The thyroid is unremarkable. The liver is normal in size and morphology. The gallbladder is unremarkable. There is no abnormal intra-or extrahepatic biliary ductal dilation. The pancreas, spleen, and adrenal glands are unremarkable. The kidneys and urinary bladder are unremarkable. There are surgical changes of hysterectomy with trace residual inflammatory changes within the surgical bed. The small and large bowel are normal in wall thickness and caliber. The appendix is normal. There is no masslike lymphadenopathy. There is no free air or fluid. The superficial soft tissues are unremarkable. The osseous structures are unremarkable. Procedure Note Soila Celestin MD - 09/25/2023 PROCEDURE(s): CT ABDOMEN PELVIS W CONTRAST, CT ANGIO CHEST PULM EMBOLISM DATE AND TIME OF EXAM(s): 09/25/2023 6:40 PM INDICATION(s): R07.9: Chest pain, unspecified. Chest tightness. Abdominal pain. Historyof PE. Surgical history of hysterectomy on 2023. Fevers. Chills. COMPARISON(s): None available. TECHNIQUE: CT of the chest was performed, following intravenous contrast administration. Contrast injection rate and acquisition timing were optimized for opacification of the pulmonary arteries for evaluation of pulmonary embolism. Images were obtained at inspiration and viewed inaxial (including thin sections), sagittal and coronal planes. Multiplanar 3DMIP images were created and reviewed. Subsequently CT of the abdomen andpelvis was performed. Multiplanar reconstructions were created and reviewed.Dose reduction techniques were utilized. Contrast: IOPAMIDOL 76 % IV SOLN:80 mL FINDINGS: There is no filling defect to suggest pulmonary embolism. The central airways, lungs, and pleural spaces are clear. The heart is normal in size. There is no pericardial effusion. The aorta and pulmonary artery are normal in caliber. The mediastinal structuresare unremarkable. The thyroid is unremarkable. The liver is normal in size and morphology. The gallbladder is unremarkable. There is no abnormal intra-or extrahepatic biliary ductal dilation. The pancreas, spleen, and adrenal glands are unremarkable. The kidneys and urinary bladder are unremarkable. There are surgical changes of hysterectomy with trace residual inflammatory changes withinthe surgical bed. The small and large bowel are normal in wall thickness and caliber. The appendix is normal. There is no masslike lymphadenopathy. There is no free air or fluid. The superficial soft tissues are unremarkable. The osseous structuresare unremarkable. IMPRESSION: 1.No evidence of pulmonary embolism. 2.Surgical changes of hysterectomy with trace residual inflammatorychanges in the surgical bed. > Interpreting Provider: Soila Celestin MD on 09/25/2023 7:25 PM Janine Norwood APRN-[facility] CT ORDERABLES * LACTIC ACID BLOOD REFLEX TO REPEAT (09/25/2023 5:56 PM CDT) Pathologist [facility] Lactic Acid 0.8 <=2 mmol/L 09/25/2023 6:14 PM CDT [facility] Blood BLOOD SPECIMEN / Unknown Venipuncture / Unknown 09/25/2023 5:56 PM CDT 09/25/2023 6:01 PM CDT Janine Norwood APRN-[facility] - ASSURANCE AUDITOR RY ORDERABLES Performing Organization Address City/State/[facility] Co de Phone Number [facility] [address] [place] [address] * (ABNORMAL) CBC W AUTO DIFFERENTIAL (09/25/2023 5:56 PM CDT) Only the most recent of9 resultswithin the time period is included. WBC 8.1 4.0 - 10.7 x10E9/L 09/25/2023 6:03 PM CDT [facility] RBC Count 5.18 3.90 - 5.20 x10E12/L 09/25/2023 6:03 PM CDT [facility] Hemoglobin 12.0 11.9 - 15.8 g/dL 09/25/2023 6:03 PM CDT [facility] Hematocrit 40.0 34.8 - 46.1 % 09/25/2023 6:03 PM CDT [facility] MCV 77.2(L) 80.0 - 98.0 fL 09/25/2023 6:03 PM [facility] MCH 23.2(L) 26.7 - 33.6 pg 09/25/2023 6:03 PM [facility] MCHC 30.0(L) 31.7 - 36.3 g/dL 09/25/2023 6:03 PM [facility] RDW-CV 16.4(H) 11.3 - 14.8 % 09/25/2023 6:03 PM [facility] Platelet Count 305 150 - 420 x10E9/L 09/25/2023 6:03 PM [facility] MPV 9.4 7.8 - 11.4 fL 09/25/2023 6:03 PM [facility] Neutrophil % 64.4 41.0 - 74.0 % 09/25/2023 6:03 PM [facility] Lymphocyte % 27.5 17.0 - 47.0 % 09/25/2023 6:03 PM [facility] Monocyte % 6.4 3.0 - 11.0 % 09/25/2023 6:03 PM [facility] Eosinophil % 0.9 0.0 - 7.0 % 09/25/2023 6:03 PM [facility] Basophil % 0.6 0.0 - 1.6 % 09/25/2023 6:03 PM [facility] Immature Granulocytes % 0.2 0.0 - 1.0 % 09/25/2023 6:03 PM [facility] Neutrophil Absolute 5.22 1.60 - 7.50 x10E9/L 09/25/2023 6:03 PM [facility] Lymphocyte Absolute 2.23 1.00 - 4.40 x10E9/L 09/25/2023 6:03 PM [facility] Monocyte Absolute 0.52 0.15 - 1.00 x10E9/L 09/25/2023 6:03 PM [facility] Eosinophil Absolute 0.07 0.00 - 0.60 x10E9/L 09/25/2023 6:03 PM [facility] Basophil Absolute 0.05 0.00 - 0.13 x10E9/L 09/25/2023 6:03 PM CDT [facility] Blood BLOOD SPECIMEN / Unknown Venipuncture / Unknown 09/25/2023 5:56 PM CDT 09/25/2023 6:01 PM CDT Janine Norwood WASTEWATER TREATMENT ENGINEER-[facility] - HEMATOL OGY ORDERABLES [facility] [place] [address] * (ABNORMAL) COMPREHENSIVE METABOLIC PANEL (09/25/2023 5:56 PM CDT) Only the most recent of2 resultswithin the time period is included. Glucose 94 70 - 105 mg/dL 09/25/2023 6:18 PM CDT [facility] Sodium 141 136 - 145 mmol/L 09/25/2023 6:18 PM T [facility] Potassium 4.2 3.5 - 5.1 mmol/L 09/25/2023 6:18 PM T [facility] Chloride 110(H) 98 - 107 mmol/L 09/25/2023 6:18 PM T [facility] CO2 20(L) 22 - 29 mmol/L 09/25/2023 6:18 PM T [facility] Calcium 9.4 8.4 - 10.4 mg/dL 09/25/2023 6:18 PM [facility] Anion Gap 11 6 - 16 mmol/L 09/25/2023 6:18 PM T [facility] BUN 14 5.3 - 18.7 mg/dL 09/25/2023 6:18 PM T [facility] Creatinine 1.03 0.57 - 1.11 mg/dL 09/25/2023 6:18 PM T [facility] Alkaline Phosphatase 58 40 - 150 U/L 09/25/2023 6:18 PM T [facility] ALT 13 0 - 55 U/L 09/25/2023 6:18 PM T [facility] AST 14 5 - 34 U/L 09/25/2023 6:18 PM T [facility] Protein Total 8.1 6.4 - 8.3 gm/dL 09/25/2023 6:18 PM CDT [facility] Albumin 3.7 3.4 - 5.0 gm/dL 09/25/2023 6:18 PM CDT [facility] Bilirubin Total 0.3 0.2 - 1.2 mg/dL 09/25/2023 6:18 PM CDT [facility] eGFR by CKD-EPI 77(L) >=90 mL/min/1.7 3 m2 09/25/2023 6:18 PM CDT [facility] Blood BLOOD SPECIMEN / Unknown Venipuncture / Unknown 09/25/2023 5:56 PM CDT 09/25/2023 6:01 PM CDT Janine Norwood APRN-[facility] - ASSURANCE AUDITOR RY ORDERABLES [facility] [address] [address] * EKG 12-LEAD (09/25/2023 5:44 PM CDT) Ventricular Rate 80 BPM [facility] MUSE Atrial Rate 80 BPM [facility] MUSE P-R Interval 132 ms [facility] QRS Duration ms 68 ms [facility] Q-T Interval ms 350 ms [facility] QTC Calculation (Bezet) 403 ms [facility] MUSE Calculated P Central 54 degrees [facility] MUSE Calculated R Central 25 degrees [facility] MUSE Calculated T Central 24 degrees [facility] MUSE Interpretation EKG Normal sinus rhythm Normal ECG No previous ECGs available Confirmed by MD WYLIE ANDREA ([id number]) on 09/28/2023 11:13:50 AM [facility] MUSE 09/25/2023 5:44 PM CDT 09/28/2023 11:13 AM CDT Janine GARCIA ECG ORDERABLE S [facility] M[facility] * CARDIAC RHYTHM STRIP ORDER (09/18/2023 1:03 AM CDT) Narrative 09/18/2023 1:03 AM CDT Ordered by an unspecified provider. Scanned Document CARDIAC SERVICES ORD ERABLES * BASIC METABOLIC PANEL (CALCIUM TOTAL) (09/16/2023 6:24 AM CDT) Glucose 97 70 - 105 mg/dL 09/16/2023 9:12 AM CDT [facility] Sodium 136 136 - 145 mmol/L 09/16/2023 9:12 AM CDT [facility] Potassium 4.6 3.5 - 5.1 mmol/L 09/16/2023 9:12 AM CDT [facility] Chloride 106 98 - 107 mmol/L 09/16/2023 9:12 AM CDT [facility] CO2 22 22 - 29 mmol/L 09/16/2023 9:12 AM CDT [facility] Calcium 8.6 8.4 - 10.4 mg/dL 09/16/2023 9:12 AM CDT [facility] Anion Gap 8 6 - 16 mmol/L 09/16/2023 9:12 AM CDT [facility] BUN 9 5.3 - 18.7 mg/dL 09/16/2023 9:12 AM CDT [facility] Creatinine 0.85 0.57 - 1.11 mg/dL 09/16/2023 9:12 AM T [facility] eGFR by CKD-EPI >90 >=90 mL/min/1.7 3 m2 09/16/2023 9:12 AM T [facility] Blood BLOOD SPECIMEN / Unknown Lab Venipuncture / Unknown 09/16/2023 6:24 AM CDT 09/16/2023 8:54 AM CDT Salvador Garcia MD LAB - CHEMISTRY ORD ERABLES [facility] [address] [place] [id number] * PATHOLOGY TISSUE EXAM (STL) (09/15/2023 9:32 AM CDT) Case Report Surgical Pathology Report ? Case: [id number] ? Authorizing Provider: ??Salvador Garcia MD ? Collected: ? 09/15/2023 09:32 AM ? Ordering Location: ? [facility] ? Received: ?09/15/2023 11:35 AM ? [facility] ? Pathologist: ? Kimberly Ahuja MD ? Specimen: ?Uterus w Tubes, Uterus, cervix, bilateral tubes ? 09/16/2023 11:24 AM [facility] Final Diagnosis Uterus with cervix and bilateral fallopian tubes, hysterectomy and salpingectomy: -- Cervix: Chronic cervicitis, no dysplasia -- Endometrium: No pathologic diagnoses -- Myometrium: Leiomyomata -- Uterine serosa: No pathologic diagnosis -- Bilateral fallopian tubes: No pathologic diagnosis 09/16/2023 11:24 AM [facility] Clinical History 1. Leiomyoma of the uterus. 2. Anemia related to chronic blood loss. 09/16/2023 11:24 AM [facility] Gross Description Received in formalin labeled with the patient's name uterus, cervix bilateral is a 279 g, 15 x 12 x 5 cm aggregate of a hysterectomy specimen. The identifiable portions of serosa are smooth. There is a 3 cm in length cervix identify has a 2 x 2 cm smooth ectocervix with a 1 cm in length slit-like, patent endocervical os. The cervix bivalved straight grossly unremarkable endocervical canal. Possible endometrium is identified. The identifiable portions of myometrium are trabecular. Multiple white-miller whorled nodules are identified, 6 cm in greatest aggregate dimension. Sectioning through the white-miller whorled nodule shows a white-miller, whorled, firm cut surface. Two fimbriated fallopian tubes are identified both measuring 4.5 cm in length and 0.4 cm in diameter. The external and cut surfaces of the fallopian tubes are grossly unremarkable. Test Inspection Engineer sections are submitted as follows A1-A2 cervix A3-A4 endomyometrium A5-A7 white-miller whorled nodules A8-serosa A9-1 fallopian tube [id number] fallopian tube 09/16/2023 11:24 AM [facility] Microscopic Description Microscopic examination substantiates the above cited diagnosis. 09/16/2023 11:24 AM [facility] Disclaimer All histochemical and/or immunohistochemical results are interpreted with controls that demonstrate appropriate staining reactions before reporting results. Note on use of immunocytochemistry reagents: This test was developed and its performance characteristic determined by [facility], Department of Laboratory Medicine. It has not been cleared or approved by the U.S. Food and Drug Administration (FDA). The FDA has determined that such clearance or approval is not necessary. The test is used for clinical purpose. It should not be regarded as investigational or for research. This laboratory is certified to perform high complexity testing. The performance characteristics of the IHC/DENZEL assays have been validated on formalin-fixed paraffin embedded tissues only. The assays have not been validated on decalcified tissues. Results should be interpreted with caution. 09/16/2023 11:24 AM [facility] Embedded Images 09/16/2023 11:24 AM [facility] Pathology/Cytolo gy UTERUS AND FALLOPIAN TUBES, CS / Unknown 09/15/2023 9:32 AM CDT 09/15/2023 11:35 AM T Salvador Garcia MD LAB - PATHOLOGY/CYT OLOGY ORDERABLES [facility] [address] [address] * LAB MISC TEST (09/15/2023 8:06 AM CDT) Test Name ABID for send out to [facility] 09/16/2023 1:54 PM CDT [facility] Blood BLOOD SPECIMEN / Unknown Lab Venipuncture / Unknown 09/15/2023 8:06 AM CDT 09/15/2023 8:46 AM CDT Salvador Garcia MD LAB SEND OUT Performing Organization Address City/[facility]/ZIP Co de Phone Number [facility] OTHER LAB [facility] [address] [address] * BLOOD TYPE VERIFICATION (09/15/2023 6:35 AM CDT) ABO Rh O POS 09/15/2023 7:5 1 AM CDT [facility] BANK LAB Blood Bank BLOOD SPECIMEN / Unknown Lab Venipuncture / Unknown 09/15/2023 6:35 AM CDT 09/15/2023 6:46 AM CDT Salvador Garcia MD LAB - BLOOD BANK OR DERABLES [facility] LAB [address] [address], [facility] [phone] * TYPE + SCREEN PANEL (09/15/2023 6:30 AM CDT) ABO Rh O POS 09/15/2023 7:51 AM CDT [facility] Comment:No history; collect retype. Antibody Screen POS 7:51 AM CDT [facility] LAB Blood Bank BLOOD SPECIMEN / Unknown Venipuncture / Unknown 09/15/2023 6:30 AM CDT 09/15/2023 6:44 AM CDT Salvador Garcia MD LAB - BLOOD BANK OR DERABLES Performing Organization Address City/[facility]/ZIP Co de Phone Number [facility] BLOOD [facility] [address] [address], [facility] [phone] * ANTIBODY IDENTIFICATION (09/15/2023 6:30 AM CDT) Antibody 1 POS, Cold Auto Anti-I 09/15/2023 3:05 PM CDT [facility] BLOOD [facility]ANK LAB Comment:ab id performed at i [facility]. Blood Bank BLOOD SPECIMEN / Unknown Venipuncture / Unknown 09/15/2023 6:30 AM CDT 09/15/2023 6:44 AM CDT Salvador Garcia MD LAB - BLOOD BANK OR DERABLES Performing Organization Address [facility] de Phone Number [facility] BLOOD BANK LAB [facility] [address], [facility] [phone] * HCG URINE QUALITATIVE - POCT (IP) INTERFACED (09/15/2023 6:20 AM CDT) HCG Qual Urine Negative Negative 09/15/2023 6:25 AM CDT [facility] Urine URINE / Unknown 09/15/2023 6 :20 AM CDT 09/15/2023 6:25 AM CDT Salvador Garcia MD LAB - POINT OF CARE ORDERABLES Performing Organization Address City/[facility] Co de Phone Number [facility] [address] [address] * HCG URINE QUAL POCT NOTIFICATION (09/15/2023 6:08 AM CDT) Comment Notification Label Only - See Separate Report 09/15/2023 7:30 AM CDT [facility] Urine URINE / Unknown 09/15/2023 6 :08 AM CDT 09/15/2023 6:08 AM CDT Salvador Garcia MD LAB - URINALYSIS OR DERABLES [facility] [address] [address] * IRON + TRANSFERRIN PANEL (04/23/2023 4:32 PM SIZE WORKER) Iron 35 27 - 159 ug/dL [facility] INSURANCE BILL Transferrin 327 192 - 364 mg/dL [facility] INSURANCE BILL Blood BLOOD SPECIMEN / Unknown 04/23/2023 4:32 PM SIZE WORKER 04/23/2023 Narrative Resulting Agency Comment Lab Testing performed at: [facility] [address] ??On license of [facility] [id number] Salvador Garcia MD LAB - CHEMISTRY ORD ERABLES [facility] INSURANCE BILL [address] [place] [address] * FERRITIN (04/23/2023 4:32 PM SIZE WORKER) Ferritin 33 15 - 150 ng/mL [facility] INSURANCE BILL Blood BLOOD SPECIMEN / Unknown 04/23/2023 4:32 PM SIZE WORKER 04/23/2023 Narrative Resulting Agency Comment Lab Testing performed at: [facility] [address] ??On license of [facility] [id number] Salvador Garcia MD LAB - CHEMISTRY ORD ERABLES [facility] INSURANCE BILL [address] [place] [address] * PATHOLOGY SPECIMEN (12/08/2022 4:53 PM CDT) Material [facility] INSURANCE BILL Comment: Material submitted: ?. endometrium - ENDOMETRIAL BIOPSY F Diagnosis [facility] INSURANCE BILL Comment: Diagnosis: ENDOMETRIAL BIOPSY: LIMITED SPECIMEN DUE TO FRAGMENTATION AND LIMITED ENDOMETRIAL TISSUE. UNDERDEVELOPED ENDOMETRIAL GLANDS AND DECIDUALIZED STROMA COMPATIBLE WITH PROGESTIN EFFECT. ABUNDANT STROMAL AND GLANDULAR BREAKDOWN. . CDE ??12/13/2022 ??0817 Local Signed [facility] INSURANCE BILL Comment: Electronically signed: ? . Brianna Carrion MD, Pathologist Grossed [facility] INSURANCE BILL Comment: Gross description: ? . 1 Container, formalin-filled, labeled with patient identification. ENDOMETRIAL BIOPSY: MULTIPLE FRAGMENT(S) OF SOFT MATERIAL, BLOOD, AND MUCUS MEASURING 6.0 X 3.0 X 0.6 CM IN AGGREGATE. FILTERED AND SUBMITTED IN CASSETTE(S) A1-A2. MASSIMO/MASSIMO ??12/11/2022 ??0430 Local [facility] INS[facility] BILL Comment: CPT ?. [id number] Pathology/Cytolo gy OPEN BIOPSY OF ENDOMETRIUM / Unknown 12/08/2022 4:53 PM CDT 12/10/2022 Narrative Resulting Agency Comment Lab Testing performed at: [address] ?? [facility] [id number] Salvador Garcia MD LAB - PATHOLOGY/CYT OLOGY ORDERABLES [facility] INSURANCE BILL [address] [place] [address] * US TRANSVAGINAL NON OB (11/27/2022 3:52 PM CDT) Anatomical Region Laterality Modality Abdomen Ultrasound Narrative 11/27/2022 3:52 PM CDT Salvador Garcia MD ? 11/27/2022 ??4:14 PM ? [facility] PANTS CUTTER [place] BOBBIN FIXER ULTRASOUND Patient Name: Erica Kaur Study Date: 11/27/2022 , Age: 8 1995, 27 year old LMP: No LMP recorded (lmp unknown). History/Indication: ??AUB Transabdominal: ??No Transvaginal: ??Yes Uterine orientation: ??Anteverted Uterine measurements: Length 10.59 cm. ? Width ??7.50 cm Height 6.37 cm. ?Volume 264.908 cc. Endometrial thickness: ??41.45 mm. Left Ovary: ??Not visualized Right Ovary: ??Not visaulized Fluid in Cul de Sac: None It Technical Specialist Comments: The endometrium was inhomogeneous with echogenic and cystic areas. One uterine fibroid was visualized on the Rt, 5.20 x 4.20 x 4.41cm. ?? Physician Interpretation: The uterus is seen and is anteveted enlarged in size and globular in shape. ??There is at least one fibroid present measuring 5.2 by 4.2 by 4.41 cms in mean diameter. The EC is seen and is abnormal in thickness. It measures 41.45 mm and it inhomogenous with echogenic and cystic areas. The left ovary is not seen today. The right ovary is not seen today. There is no free fluid present in the pelvis. It Technical Specialist: ??Kavitha Camarillo RDMS, RT(R) Images will be scanned into the record. Interpreting Physician: Aroldo Garcia MD Procedure Note Kavitha Camarillo RDMS - 11/27/2022 3:52 PM CDT [facility] PANTS C[employer] BOBBIN FIXER ULTRASOUND Patient Name: Erica Kaur Study Date: 11/27/2022 , Age: 8 1995, 27 year old LMP: No LMP recorded (lmp unknown). History/Indication: AUB Transabdominal: No Transvaginal: Yes Uterine orientation: Anteverted Uterine measurements: Length 10.59 cm. Width 7.50 cm Height 6.37 cm. Volume 264.908 cc. Endometrial thickness: 41.45 mm. Left Ovary: Not visualized Right Ovary: Not visaulized Fluid in Cul de Sac: None It Technical Specialist Comments: The endometrium was inhomogeneous with echogenic andcystic areas. One uterine fibroid was visualized on the Rt, 5.20 x 4.20 x4.41cm. Physician Interpretation: The uterus is seen and is anteveted enlarged insize and globular in shape. There is at least one fibroid presentmeasuring 5.2 by 4.2 by 4.41 cms in mean diameter. The EC is seen and isabnormal in thickness. It measures 41.45 mm and it inhomogenous withechogenic and cystic areas. The left ovary is not seen today. The rightovary is not seen today. There is no free fluid present in the pelvis. It Technical Specialist: Kavitha Camarillo [facility], RT(R) Images will be scanned into the record. Interpreting Physician: Aroldo Garcia MD Salvador Garcia MD US ORDERABLES * CHLAMYDIA + GC AMPLIFIED PROBE (11/17/2022 4:10 PM CDT) Only the most recent of2 resultswithin the time period is included. Chlamydia RASHAD Urine Negative Negative [facility] INSURANCE BILL GC RASHAD Urine Negative Negative [facility] INSURANCE BILL Microbiology PART OF UTERINE CERVIX / Unknown 11/17/2022 4:10 PM CDT 11/17/2022 Narrative Resulting Agency Comment Lab Testing performed at: [address] ??[facility] [id number] Salvador Garcia MD LAB - MICROBIOLOGY ORDERABLES [facility] INSURANCE BILL [address] [place] [address] * PAP IG LB RFLX HPV APTIMA ASCU (11/17/2022 4:09 PM CDT) Diagnosis [facility] INSURANCE BILL Comment: NEGATIVE FOR INTRAEPITHELIAL LESION OR MALIGNANCY. PREDOMINANCE OF COCCOBACILLI CONSISTENT WITH SHIFT IN VAGINAL BRITTANY IS PRESENT. THIS SPECIMEN WAS RESCREENED PART OF OUR SALES SERVICE PROFESSIONAL PROGRAM. Specimen Adequacy [facility] INSURANCE BILL Comment:Satisfactory for enzo luation. No endocervical component is identified. Clinician Provided ICD10 [facility] INSURANCE BILL Comment: N93.9 D50.0 Performed by [facility] INSURANCE BILL Comment:Lenora Crump otechnologist ([facility]) QC Reviewed by [facility] INSURANCE BILL Comment:Nadeen Duarte ytotechnologist ([facility]) Comment . [facility] INSURANCE BILL Note [facility] INSURANCE BILL Comment: The Pap smear is a screening test designed to aid in the detection of premalignant and malignant conditions of the uterine cervix. ??It is not a diagnostic procedure and should not be used as the sole means of detecting cervical cancer. ??Both false-positive and false-negative reports do occur. ? . IGLBP CPT Code Automation [facility] INSURANCE BILL Comment: This liquid based ThinPrep(R) pap test was screened with the use of an image guided system. Note [facility] INSURANCE BILL Comment: The HPV DNA reflex criteria were not met with this specimen result therefore, no HPV testing was performed. ? . Pathology/Cytolog y PART OF UTERINE CERVIX / Unknown 11/17/2022 4:09 PM CDT 11/18/2022 Narrative [facility] INSURANCE BILL - 11/24/2022 1:08 PM CDT No. of containers..01 ThinPrep Vial Resulting Agency Comment Lab Testing performed at: [facility] [place] [address] [facility] ??[place] [id number] Salvador Garcia MD LAB - PATHOLOGY/CYT OLOGY ORDERABLES [facility] INSURANCE BILL [address] [place] [address] * IMAGING RADIOLOGY XRAY RESULTS ORDER (07/11/2021) Only the most recent of2 resultswithin the time period is included. Anatomical Region Laterality Modality Other 07/11/2021 Narrative 07/11/2021 Ordered by an unspecified provider. Scanned Document IMAGING * LAB RESULTS ORDER (08/13/2013 5:04 AM SIZE WORKER) Narrative 08/13/2013 5:04 AM SIZE WORKER Ordered by an unspecified provider. Transcriptions Document, Scanned - 08/13/2013 5:04 AM CST Scanned Document LAB - THERAPEUTIC DR ALEXSANDER MONITORING ORDERABLES * LH (08/08/2013 12:08 PM SIZE WORKER) Pathologist [facility] 4.3 mIU/mL 08/08/2013 6:28 PM SIZE WORKER [facility] Blood BLOOD SPECIMEN / Unknown Lab Venipuncture / Unknown 08/08/2013 12:08 PM SIZE WORKER 08/08/2013 12:20 PM SIZE WORKER Narrative [facility] - 08/08/2013 6:28 PM SIZE WORKER ? LH Reference Range Adult Female: ?Normally menstruating: ?Follicular ? 1.9 - 12.5 ??mIU/mL ?Midcycle Peak ?8.7 - 76.3 ??MIU/mL ?Luteal ? 0.5 - 16.9 ??mIU/mL ?<0.1 - ??1.5 ??mIU/mL ?Postmenopausal ?15.9 - 54.0 ??mIU/mL ?Contraceptives ? 0.7 - ??5.6 ??mIU/mL Adult Male: 20 - 70 years : 1.5 - ??9.3 ??mIU/mL ?> 70 years : 3.1 - 34.6 ??mIU/mL Children : ? <0.1 - 6.0 ?? mIU/mL ? Francesco Marion MD LAB - CHEMISTRY LIBERTAD PEREIRA [facility] [address] [place] [address] * FSH (08/08/2013 12:08 PM SIZE WORKER) [facility] 4.35 0.2 - 8.0 mIU/mL 08/08/2013 1:18 PM SIZE WORKER [facility] Blood BLOOD SPECIMEN / Unknown Lab Venipuncture / Unknown 08/08/2013 12:08 PM SIZE WORKER 08/08/2013 12:20 PM SIZE WORKER Narrative [facility] - 08/08/2013 1:18 PM SIZE WORKER ?FSH Reference Range Normal Female Menses: ? Normally menstruating: ? Follicular ?3.0 - ?? 8.1 ??mIU/mL ? Midcycle Peak ? 2.6 - ??16.7 ??mIU/mL ? Luteal ?1.4 - ?? 5.5 ??mIU/mL ? Postmenopausal ?? 26.7 - 133.4 ??mIU/mL ? Francesco Marion MD LAB - CHEMISTRY LIBERTAD PEREIRA Performing Organization Address [facility] de Phone Number [facility] [address] [place] [address] * (ABNORMAL) VITAMIN D 25-HYDROXY (08/08/2013 12:08 PM SIZE WORKER) Vitamin D, 25 Hydroxy 8.69(L) 30 - 100 ng/mL 08/08/2013 6:28 PM SIZE WORKER [facility] Blood BLOOD SPECIMEN / Unknown Lab Venipuncture / Unknown 08/08/2013 12:08 PM SIZE WORKER 08/08/2013 12:20 PM SIZE WORKER Narrative [facility] - 08/08/2013 6:28 PM SIZE WORKER Vitamin D Status: ?Deficiency ? <20 ? ng/mL ?Insufficiency ?? 20-30 ??ng/mL ?Sufficiency ? 30-100 ng/mL ?Toxicity ? >100 ?ng/mL Francesco Marion MD LAB - CHEMISTRY LIBERTAD PEREIRA Performing Organization Address [facility] Co de Phone Number [facility] [address] [place] [address] * TESTOSTERONE FREE+TOT FEM/CHLD HYPOGNDL MALE (08/08/2013 12:08 PM SIZE WORKER) Testosterone by Tar Pot Worker 17 9 - 58 ng/dL 08/10/2013 12:09 PM SIZE WORKER [facility] Comment: INTERPRETIVE INFORMATION: Total Testosterone, Donny Stage ?Male ?Female Donny Stage I ? 2-15 ng/dL ? 2-17 ng/dL Donny Stage II ?3-303 ng/dL ?5-40 ng/dL Donny Stage III ?10-851 ng/dL ? 10-63 ng/dL Donny Stage IV-V ??162-847 ng/dL ? 11-62 ng/dL REFERENCE INTERVAL: Testosterone, LC-MS/MS Access complete set of age- and/or gender-specific reference intervals for this test in the [employer] [facility] ([employer]). Test developed and characteristics determined by [employer]. See Compliance Statement B: [employer]/ Sex Hormone Binding Globulin 54 19 - 145 nmol/L 08/10/2013 12:09 PM SIZE WORKER [facility] Comment: REFERENCE INTERVAL: Sex Hormone Binding Globulin Access complete set of age- and/or gender-specific reference intervals for this test in the [employer] [facility] Directory ([employer]). Testosterone Free LC-MS 2.1 1.2 - 9.9 pg/mL 08/10/2013 12:09 PM [email or web address] Comment: Testosterone, Free LC-MS/MS: Donny Stage Reference Intervals ? Male ?Female Donny Stage I ?Less than 3.8 pg/mL ??Less than 2.2 pg/mL Donny Stage II ?? 0.3-21 pg/mL ? 0.4-4.5 pg/mL Donny Stage III ??1-98 pg/mL ? 1.3-7.5 pg/mL Donny Stage IV ?? 35-169 pg/mL ? 1.1-15.5 pg/mL Donny Stage V ?41-239 pg/mL ? 0.8-9.2 pg/mL To convert to pmol/L, multiply pg/mL by 3.47 The concentration of Free Testosterone is derived from a mathematical expression based on the constant for the binding of testosterone to sex hormone binding globulin. REFERENCE INTERVAL: Testosterone, Free LC-MS/MS Access complete set of age- and/or gender-specific reference intervals for this test in the [facility] Laboratory Test Directory ([employer]). Blood specimen (specimen) BLOOD SPECIMEN / Unknown Lab Venipuncture / Unknown 08/08/2013 12:08 PM SIZE WORKER 08/08/2013 12:20 PM [facility] Francesco Marion MD LAB - CHEMISTRY LIBERTAD PEREIRA REPLACED BY [facility] [address] [place] [address] * (ABNORMAL) LIPID PROFILE (08/08/2013 12:08 PM [facility]) Cholesterol 124 <170 mg/dL 08/08/2013 12:59 PM [facility] Triglycerides 56 46 - 227 mg/dL 08/08/2013 12:59 PM [facility] HDL Cholesterol 48 >40 mg/dL 4 12:59 PM [facility] LDL Calculated 65 <100 mg/dL 08/08/2013 12:59 PM [facility] VLDL Calculated 11(L) 12 - 38 mg/dL 08/08/2013 12:59 PM [facility] Chol HDL Ratio 2.6 <=5.0 08/08/2013 12:59 PM [facility] Blood BLOOD SPECIMEN / Unknown Lab Venipuncture / Unknown 08/08/2013 12:08 PM SIZE WORKER 08/08/2013 12:20 PM [facility] Narrative [facility] - 08/08/2013 12:59 PM [facility] Lipid Profile Comment: Adult references ranges are the recommendation of the [place] [employer] , for those patients >18 years old. Cholestrol ??LDL ?? Triglycerides ?HDL ?? -- ?-- ? -- ?<40 ?Low <170 ? <100 ?<150 ? Desirable 170-199 ?? 130-159 ? 150-199 ?Borderline High >200 ?160-189 ? 200-499 ?>60 ?High Risk factor status for Coronary Artery Disease is necessary to place these lab findings in perspective. Note: This test is for fasting patients only. A non-fasting state may alter some of these results. Francesco Marion MD LAB - CHEMISTRY LIBERTAD PEREIRA Performing Organization Address [facility] Co de Phone Number [facility] [address] [place] [address] * HCG URINE QUALITATIVE - POCT (IP) BEAKER (08/03/2013 3:51 PM SIZE WORKER) Only the most recent of2 resultswithin the time period is included. HCG Qual Urine Negative Negative [facility] POCT TESTING QC Verified Yes Yes [facility] PO CT TESTING Urine specimen (specimen) URINE / Unknown 08/03/2013 3:51 PM SIZE WORKER Jeannie Joseph MD LAB - POINT OF CARE ORDERABLES Performing Organization Address [facility] Co de Phone Number [facility] POCT TEST[facility] [address] [place] [address] * US PELVIS W DOPPLER UTERUS OVARIES (08/03/2013 3:34 PM SIZE WORKER) Anatomical Region Laterality Modality Ultrasound 08/03/2013 3:46 PM SIZE WORKER Impressions 08/03/2013 3:57 PM SIZE WORKER Normal pelvic sonogram with no evidence of ovarian torsion. Jonatan Ramirez MD Dictated by Jonatan Ramirez on 08/03/2013 3:53 PM I, Guerrero Powell, have personally reviewed the images and I agree with this report. Narrative 08/03/2013 3:57 PM SIZE WORKER Exam: Pelvic Ultrasound Comparison: None available. Findings: Right ovary: 3.2 x 2.0 x 3.3 cm. 10.8 mL in volume. Left ovary: 2.6 x 2.3 x 2.2 cm. 6.8 mL in volume. Uterus: 8.7 x 4.3 x 5.5 cm. The endometrial stripe measures 4 mm. No fluid is present in the cul-de-sac. The uterus and ovaries are normal. No masses are present in the adnexa. A Villagomez catheter is present in the bladder. Doppler interrogation documents arterial flow in each ovary. Procedure Note Guerrero Powell MD - 08/03/2013 Exam: Pelvic Ultrasound Comparison: None available. Findings: Right ovary: 3.2 x 2.0 x 3.3 cm. 10.8 mL in volume. Left ovary: 2.6 x 2.3 x 2.2 cm. 6.8 mL in volume. Uterus: 8.7 x 4.3 x 5.5 cm. The endometrial stripe measures 4 mm. No fluid is present in the cul-de-sac. The uterus and ovaries are normal. No masses are present in the adnexa. A Villagomez catheter is present in the bladder. Doppler interrogation documents arterial flow in each ovary. IMPRESSION Normal pelvic sonogram with no evidence of ovarian torsion. Jonatan Ramirez MD Dictated by Jonatan Ramirez on 08/03/2013 3:53 PM I, Guerrero Powell, have personally reviewed the images and I agree with this report. Jeannie Joseph MD US ORDERABLES * PT PTT PANEL (08/03/2013 3:00 PM SIZE WORKER) PT 12.9 12.2 - 14.5 sec 08/03/2013 3:45 PM [facility] INR 0.98 0.8 - 1.2 08/03/2013 3:45 PM [facility] PTT 23.5 23.0 - 36.0 sec 08/03/2013 3:45 PM [facility] Blood BLOOD SPECIMEN / Unknown 08/03/2013 3:00 PM SIZE WORKER 08/03/2013 3:05 PM SIZE WORKER Jeannie Joseph MD LAB - COAGULATION OR DERABLES [facility] [address] [place] [address] * (ABNORMAL) DIFFERENTIAL MANUAL (08/03/2013 3:00 PM SIZE WORKER) WBC Auto 7.7 x10^9/L 08/03/2013 3:49 PM [facility] Neutrophil % Manual 82(H) 24 - 66 % 08/03/2013 3:49 PM [facility] Lymphocytes % Manual 15(L) 22 - 61 % 08/03/2013 3:49 PM [facility] Monocytes % Manual 3 3 - 15 % 08/03/2013 3:49 PM [facility] Cells Counted 100 # cells 08/03/2013 3:49 PM [facility] Platelet Estimation Adequate platelets Normal, Adequate platelets 08/03/2013 3:49 PM [facility] RBC Morphology Normal 08/03/2013 3:49 PM [facility] Hypersegmented Neutrophils 2+(A) None 08/03/2013 3:49 PM [facility] Blood BLOOD SPECIMEN / Unknown 08/03/2013 3:00 PM SIZE WORKER 08/03/2013 3:05 PM SIZE WORKER Jeannie Joseph MD LAB - HEMATOLOGY ORD ERABLES Performing Organization Address City/[facility]/ZIP Co de Phone Number [facility] [address] [place] [address] * LIPASE BLOOD (08/03/2013 3:00 PM SIZE WORKER) Pathologist [facility] Lipase 21 10 - 220 U/L 08/03/2013 3:28 PM [facility] Blood BLOOD SPECIMEN / Unknown 08/03/2013 3:00 PM SIZE WORKER 08/03/2013 3:13 PM SIZE WORKER Jeannie Joseph MD LAB - CHEMISTRY ORDWilfredo PEREIRA Performing Organization Address City/[facility]/ZIP Co de Phone Number [facility] [address] [place] [address] * (ABNORMAL) AMYLASE BLOOD (08/03/2013 3:00 PM SIZE WORKER) Amylase 76(H) 5 - 65 U/L 08/03/2013 3:28 PM [facility] Blood BLOOD SPECIMEN / Unknown 08/03/2013 3:00 PM SIZE WORKER 08/03/2013 3:13 PM SIZE WORKER Jeannie Joseph MD LAB - CHEMISTRY LIBERTAD PEREIRA Performing Organization Address [facility] de Phone Number [facility] [address] [facility] [place] [address] * DRUG ABUSE URINE PANEL (08/03/2013 2:48 PM [facility]) Pathologist [facility] Amphetamines Screen Urine Not Detected Not Detected 08/03/2013 3:22 PM [facility] Barbiturates Screen Urine Not Detected Not Detected 08/03/2013 3:22 PM [facility] Benzodiazepines Screen Urine Not Detected Not Detected 08/03/2013 3:22 PM [facility] Cannabinoids Screen Urine Not Detected Not Detected 08/03/2013 3:22 PM [facility] Cocaine Screen Urine Not Detected Not Detected 08/03/2013 3:22 PM [facility] Opiate Screen Urine Not Detected Not Detected 08/03/2013 3:22 PM [facility] Phencyclidine Screen Urine Not Detected Not Detected 08/03/2013 3:22 PM [facility] Urine URINE / Unknown 08/03/2013 2 :48 PM [facility] 08/03/2013 3:10 PM [facility] Narrative [facility] - 08/03/2013 3:22 PM [facility] Medical urine drug screening is only a qualitative method. A Negative result does not prove the absence of a drug or a drug metabolite. The screening methods used are subject to cross-reactivity from other prescription and nonprescription drugs and should be interpreted carefully along with other pertinent clinical information. Drug Screening Test Cutoff Values: AMPHETAMINES ? 1000 ng/ml BARBITURATES ?200 ng/ml BENZODIAZEPINES ? 200 ng/ml CANNABINOIDS (THC) ?? 50 ng/ml COCAINE ? 300 ng/ml OPIATES ? 300 ng/ml PHENCYCLIDINE (PCP) ??25 ng/ml Jeannie Joseph MD LAB - URINE CHEMISTR Y ORDERABLES Performing Organization Address City/[facility]/ZIP Co de Phone Number [facility] [address] [place] [address] * (ABNORMAL) URINALYSIS ROUTINE AUTO (08/03/2013 2:48 PM SIZE WORKER) Color UA Yellow Straw, Yellow, Dark Yellow 08/03/2013 3:38 PM [facility] Clarity UA Clear 08/03/2013 3:38 PM [facility] Specific [place] UA 1.010 1.005 - 1.030 08/03/2013 3:38 PM [facility] pH UA 6.0 5.0 - 8.0 pH 08/03/2013 3:38 PM [facility] Protein UA Negative Negative 08/03/2013 3:38 PM [facility] Blood UA Negative Negative 08/03/2013 3:38 PM [facility] Leukocyte UA Negative Negative 08/03/2013 3:38 PM [facility] Nitrite UA Negative Negative 08/03/2013 3:38 PM [facility] Glucose UA Negative Negative 08/03/2013 3:38 PM [facility] Ketone UA Negative Negative 08/03/2013 3:38 PM [facility] Bilirubin UA 2+(A) Negative 08/03/2013 3:38 PM [facility] Urobilinogen UA 0.2 0.1 - 1.0 EU/dL 08/03/2013 3:38 PM [facility] Urine URINE SPECIMEN OBTAINED BY CLEAN CATCH PROCEDURE / Unknown 08/03/2013 2:48 PM SIZE WORKER 08/03/2013 2:57 PM [facility] Jeannie Joseph MD LAB - URINALYSIS ORD ERABLES Performing Organization Address [facility]/State/[facility] Co de Phone Number [facility] [address] [place] [address] * URINALYSIS MICROSCOPIC ONLY (08/03/2013 2:48 PM SIZE WORKER) RBC UA 0-2 0-2, 2-5 # /hpf 08/03/2013 3:38 PM [facility] WBC UA 0-2 0-2, 2-5 # /hpf 08/03/2013 3:38 PM [facility] Bacteria UA Trace None Seen, Trace 08/03/2013 3:38 PM [facility] Epithelial Cell UA 0-2 0-2, 2-5 08/03/2013 3:38 PM [facility] Urine URINE SPECIMEN OBTAINED BY CLEAN CATCH PROCEDURE / Unknown 08/03/2013 2:48 PM SIZE WORKER 08/03/2013 2:57 PM SIZE WORKER Jeannie Joseph MD LAB - URINALYSIS ORD ERABLES Performing Organization Address City/State/[facility] Co de Phone Number [facility] [address] [place] [address] * MRI LOWER EXT ANY JOINT NON CONTRAST LEFT (04/14/2013 11:05 AM CDT) Anatomical Region Laterality Modality Lower Extremity Magnetic Resonan ce 04/14/2013 1:24 PM CDT Impressions 04/14/2013 1:43 PM CDT 1. Mild edema pattern in the lateral femoral condyle, lateral tibial plateau, and medial tibial plateau posteriorly likely reflecting resolving bone bruise. No fracture. 2. ACL sprain/partial tear. Some intact fibers are visualized. 3. Tear in the posterior horn of the medial meniscus extending to the superior articular surface. Narrative 04/14/2013 1:43 PM CDT Noncontrast MRI left knee History: 18-year-old female, pain. Injured knee playing basketball. Technique: The knee was scanned using an axial T2 fat saturation sequence; sagittal proton density and T2 fat saturation sequences; coronal T1 and T2 fat saturation sequences; and an oblique coronal T2 sequence. Comparison: X-rays dated March 16, 2013. Findings: On the sagittal sequences, the anterior cruciate ligament is indistinct and demonstrates increased signal (series 4 and 5 image 14). On the coronal oblique ACL sequence, some intact fibers are visible. There is also suggestion of some intact fibers on the straight coronal images. The findings are consistent with a sprain/partial tear. The posterior cruciate ligament is normal. The medial collateral ligament is normal. The biceps femoris tendon, fibular collateral ligament, iliotibial band, and popliteus are normal. Increased signal is seen in the medial meniscus posterior horn extending to the superior articular surface consistent with tear (series 4 images 7-9 and series 5 image 7). ??The body and anterior horn are intact. There is no lateral meniscal tear. There is very mild edema pattern in the lateral femoral condyle and lateral tibial plateau (series 7 image 15) as well as the medial tibial plateau posteriorly (series 5 image 9) suggesting resolving bone bruise. ??No fracture is seen. The articular cartilage in the medial, lateral, and patellofemoral compartments is intact without focal defect. In the patellofemoral compartment, the cartilage is intact. The patellar retinacula, and the quadriceps and patellar tendons are normal. There is no effusion or popliteal cyst. Muscle signal is normal. Procedure Note Jonatan Campbell MD - 04/14/2013 Noncontrast MRI left knee History: 18-year-old female, pain. Injured knee playing basketball. Technique: The knee was scanned using an axial T2 fat saturation sequence; sagittal proton density and T2 fat saturation sequences; coronal T1 and T2 fat saturation sequences; and an oblique coronal T2 sequence. Comparison: X-rays dated March 16, 2013. Findings: On the sagittal sequences, the anterior cruciate ligament is indistinct and demonstrates increased signal (series 4 and 5 image 14). On the coronal oblique ACL sequence, some intact fibers are visible. There is also suggestion of some intact fibers on the straight coronal images. The findings are consistent with a sprain/partial tear. The posterior cruciate ligament is normal. The medial collateral ligament is normal. The biceps femoris tendon, fibular collateral ligament, iliotibial band, and popliteus are normal. Increased signal is seen in the medial meniscus posterior horn extending to the superior articular surface consistent with tear (series 4 images 7-9 and series 5 image 7). The body and anterior horn are intact. There is no lateral meniscal tear. There is very mild edema pattern in the lateral femoral condyle and lateral tibial plateau (series 7 image 15) as well as the medial tibial plateau posteriorly (series 5 image 9) suggesting resolving bone bruise. No fracture is seen. The articular cartilage in the medial, lateral, and patellofemoral compartments is intact without focal defect. In the patellofemoral compartment, the cartilage is intact. The patellar retinacula, and the quadriceps and patellar tendons are normal. There is no effusion or popliteal cyst. Muscle signal is normal. IMPRESSION 1. Mild edema pattern in the lateral femoral condyle, lateral tibial plateau, and medial tibial plateau posteriorly likely reflecting resolving bone bruise. No fracture. 2. ACL sprain/partial tear. Some intact fibers are visualized. 3. Tear in the posterior horn of the medial meniscus extending to the superior articular surface. Latesha Raya MD MR ORDERABL ES * KNEE - LEFT (03/16/2013 3:26 PM CDT) Anatomical Region Laterality Modality Lower Extremity Radiographic Lynn ging 03/16/2013 3:30 PM CDT Impressions 03/16/2013 3:31 PM CDT Soft tissue swelling with no underlying osseous abnormality. Narrative 03/16/2013 3:31 PM CDT EXAMINATION: LEFTXR KNEE 1 OR 2 VW LEFT*[id number] dated 03/16/2013. HISTORY: Pain in limb. FINDINGS: AP and lateral views of the left knee were obtained. Comparison is made to the prior study of November of 2012 The bone mineralization is normal. ??No fractures or dislocations are seen. ??Mild suprapatellar soft tissue swelling is identified. ??No other imaging abnormality is appreciated. Procedure Note Guerrero Powell MD - 03/16/2013 EXAMINATION: LEFTXR KNEE 1 OR 2 VW LEFT*[id number] dated 03/16/2013. HISTORY: Pain in limb. FINDINGS: AP and lateral views of the left knee were obtained. Comparison is made to the prior study of November of 2012 The bone mineralization is normal. No fractures or dislocations are seen. Mild suprapatellar soft tissue swelling is identified. No other imaging abnormality is appreciated. IMPRESSION Soft tissue swelling with no underlying osseous abnormality. Margoth Mon MD DIAGNOSTIC IMAGING O RDERABLES * TIBIA AND FIBULA - LEFT (11/13/2012 11:46 PM CDT) Anatomical Region Laterality Modality Lower Extremity Radiographic Lynn ging 11/14/2012 10:3 4 AM CDT Impressions 11/14/2012 10:35 AM CDT Normal Narrative 11/14/2012 10:35 AM CDT Left tibia and fibula, 2 views 11/14/2012 There is no fracture, dislocation, or abnormal bone production or destruction. Procedure Note Gino Brody MD - 11/14/2012 Left tibia and fibula, 2 views 11/14/2012 There is no fracture, dislocation, or abnormal bone production or destruction. IMPRESSION Normal Emerson Pascual MD DIAGNOSTIC IMAGING O RDERABLES Care Teams Employee Relations Representative Relationship Specialty Start Date End Date Adelaide Beth, WASTEWATER TREATMENT ENGINEER-[employer]HER [address] [place] [address] PCP - Attributed-[employer] [place] 04/15/19
--- OUTSIDE RECORDS SUMMARY | 2024-07-12 09:06 | XMS_ITS | Encounter Summary ---
Author Organization [facility] Address [address] 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
--- OUTSIDE RECORDS SUMMARY | 2024-07-12 09:06 | XMS_ITS | Clinical Summary ---
Author Organization [facility] Address [address] [place] [address]. [place] [address] [place] [address] Care Team Providers Care Coating Mixer Supervisor Name Role Phone Simone Valentine MD Primary Care Provider [phone] Allergies Active Allergy Reactions Criticality Noted Date Comments Estrogens Other (see comment) High 12/18/2021 Blood Clots Medications fluconazole (DIFLUCAN) 150 MG tablet Take 1 tablet (150 mg total) by mouth see administration instructions. Repeat in 72 hours if ineffective 2 tablet 4 Active Active Problems Problem Noted Date Diagnosed Date Vaginal bleeding 11/10/2022 Fibroid 07/15/2021 Menorrhagia with irregular cycle 07/15/2021 Acute pulmonary embolism ([facility] HHS/HCC) 07/15 Acute deep vein thrombosis (DVT) ([facility] HHS/HC C) 07/15/2021 Anemia due to chronic blood loss 07/10/2021 Encounters Date Type Department Care Team Description 06/04/2024 9:08 AM ORTHOTIC PRACTITIONER - 06/04/2024 10:26 AM ORTHOTIC PRACTITIONER Hospital Encounter [facility] Care [address] [place] [address] Patria Damon DO Female Gu Discharge Disposition: Home or Self Care (Routine Discharge) 06/04/2024 Travel from Last 3 Months Family History Medical History Relation Comments Hypertension Father Hypertension Mother Relation Status Comments Father Alive Mother Alive Social History Tobacco Use Types Packs/Day Years Used Date Smoking Tobacco: Never Passive Smoke Exposure: Past Smokeless Tobacco: Never Tobacco Cessation:Counseling Given: Not Answered Alcohol Use Standard Drinks/Week Comments Yes 0 (1 standard drink = 0.6 oz pur e alcohol) socially Humiliation, Afraid, Rape, and Kick questionnair e Answer Date Recorded Within the last year, have y ou been afraid of your partner or ex-partner? No 11/10/2022 Within the last year, have y ou been humiliated or emotionally abused in other ways by your partner or ex-partner? No Within the last year, have y ou been kicked, hit, slapped, or otherwise physically hurt by your partner or ex-partner? No 11/10/2022 Within the last year, have y ou been raped or forced to have any kind of sexual activity by your partner or ex-partner? No 11/10/2022 Social Connection and Isolat ion Panel [NHANES] Answer Date Recorded In a typical week, how many times do you talk on the phone with family, friends, or neighbors? More than three times a week 11/10/2022 How often do you get togethe r with friends or relatives? More than three times a week 11/10/2022 How often do you attend chur ch or gnosticist services? Never 11/10/2022 Do you belong to any clubs o r organizations such as spiritism groups, unions, fraternal or athletic groups, or school groups? No 11/10/2022 How often do you attend meet ings of the clubs or organizations you belong to? Never 11/10/2022 Are you , , di vorced, , never , or living with a partner? 11/10/2022 AUDIT-C Answer Date Recorded Q1: How often do you have a drink containing alc ohol? Monthly or less 11/10/2022 Q2: How many drinks containi ng alcohol do you have on a typical day when you are drinking? 1 or 2 11/10/2022 Q3: How often do you have si x or more drinks on one occasion? Never 11/10/2022 Overall Financial Resource Strain (CARDIA) Answe r Date Recorded How hard is it for you to pa y for the very basics like food, housing, medical care, and heating? Not hard at all 11/10/2022 [facility] - Occupational Stress Questionnaire Answer Date Recorded Do you feel stress - tense, restless, nervous, or anxious, or unable to sleep at night because your mind is troubled all the time - these days? Not at all 11/10/2022 Exercise Vital Sign Answer Date Recorde d On average, how many days pe r week do you engage in moderate to strenuous exercise (like a brisk walk)? 5 days 11/10/2022 On average, how many minutes do you engage in exercise at this level? 150+ min 11/10/2022 Hunger Vital Sign Answer Date Recorded Within the past 12 months, y ou worried that your food would run out before you got the money to buy more. Never true 11/11/19 23 Within the past 12 months, t he food you bought just didn't last and you didn't have money to get more. Never true 11/10/2022 PRAPARE - Transportation Answer Date Re corded In the past 12 months, has l ack of transportation kept you from medical appointments or from getting medications? No 10/14 In the past 12 months, has l ack of transportation kept you from meetings, work, or from getting things needed for daily living? No 11/10/2022 Housing Stability Vital Sign Answer Kvng e Recorded In the last 12 months, was t here a time when you were not able to pay the mortgage or rent on time? No 11/10/2022 In the last 12 months, how many places have you lived? 1 11/10/2022 In the last 12 months, was t here a time when you did not have a steady place to sleep or slept in a care home (including now)? No 11/10/2022 Comments No Sex and Gender Information Value Date Recorded Sex Assigned at Not on file Legal Sex Female 4:27 PM CDT Gender Identity Not on file Sexual Orientation Not on file Last Filed Vital Signs Vital Sign Reading Time Taken Comments Blood Pressure 127/84 06/04/2024 9:12 AM ORTHOTIC PRACTITIONER Pulse 70 06/04/2024 9:12 AM ORTHOTIC PRACTITIONER Temperature 36.1 ??C (97 ??F) 06/04/2024 9:12 AM ORTHOTIC PRACTITIONER Respiratory Rate 16 06/04/2024 9:12 AM ORTHOTIC PRACTITIONER Oxygen Saturation 100% 06/04/2024 9:12 AM ORTHOTIC PRACTITIONER Inhaled Oxygen Concentration - - Weight 108.9 kg (240 lb) 06/04/2024 9:12 AM ORTHOTIC PRACTITIONER Height 165.1 cm (5' 5 ) 06/04/2024 9:12 AM ORTHOTIC PRACTITIONER Body Mass Index 39.94 06/04/2024 9:12 AM ORTHOTIC PRACTITIONER Plan of Treatment Health Maintenance Due Date Last Done Comments Annual Physical 01/20/2000 HPV Vaccines (2 - 3-dose series) 05/23/2015 04/25/2015 DTaP, Tdap and Td Vaccines ( 1 - Tdap) 01/20/2016 Hepatitis B Vaccines (1 of 3 - 19+ 3-dose series) 01/20/2016 COVID-19 Vaccine (2023-2 5 season) 2024 Influenza Adult (#1) 2024 04/25/2015 Cervical Cancer Screening Pa p Smear (Age 21 to 29) Every 3 Years 11/17/2025 11/17/2022, 11/17/2022 Cervical Cancer Screening 11/17/2025 Meningococcal Vaccine Completed 04/25/2015 Hepatitis C Completed 04/18/2024, 04/18/2024, 06/11/2023 Meningococcal B Vaccine Aged Out No l onger eligible based on patient's age to complete this topic Pneumococcal Vaccine: Pediatrics (0 to 5 Years) and At-Risk Patients (6 to 64 Years) Aged Out No longer eligible b ased on patient's age to complete this topic RSV Immunizations Under 20 Months Aged Out No longer eligible b ased on patient's age to complete this topic Goals Goal Patient Goal Type Associated Problems Recent Progress Patient-Stated? Author Patient will return to prior living situation and remain independent in ADLs upon discharge from hospital Lifestyle No Emily Harkins, sales record clerk Procedure Name Priority Date/Time Associated Diagnosis Comments XR CHEST PA+LAT STAT 06/04/2024 9:59 AM ORTHOTIC PRACTITIONER CULTURE, GENITAL W/ GRAM STAIN STAT 06/04/2024 9:16 AM ORTHOTIC PRACTITIONER URINALYSIS AUTO DIP STAT 06/04/2024 9 :16 AM ORTHOTIC PRACTITIONER from Last 3 Months Results * XR CHEST PA+LAT (06/04/2024 9:59 AM ORTHOTIC PRACTITIONER) Anatomical Region Laterality Modality Chest Radiographic Lynn ging 06/04/2024 10:0 9 AM ORTHOTIC PRACTITIONER Impressions 06/04/2024 10:13 AM ORTHOTIC PRACTITIONER IMPRESSION: No acute chest disease identified. Ordered By: PATRIA DAMON Interpreted By: Michi Henry MD, 06/04/2024 10:09 AM Narrative 06/04/2024 10:13 [place] [address] Examination: XR CHEST PA+LAT Exam time: 06/04/2024 9:53 AM Clinical history: XR CHEST PA+LAT Comparison: Radiographs November 10, 2022. Technique: PA and lateral views of the chest. Findings: The cardiomediastinal silhouette appears normal. There is no pulmonary consolidation, pleural effusion or pneumothorax. The pulmonary vasculature appears normal. Procedure Note Michi Henry MD - 06/04/2024 [place] [address] Examination: XR CHEST PA+LAT Exam time: 06/04/2024 9:53 AM Clinical history: XR CHEST PA+LAT Comparison: Radiographs November 10, 2022. Technique: PA and lateral views of the chest. Findings: The cardiomediastinal silhouette appears normal. There is no pulmonaryconsolidation, pleural effusion or pneumothorax. The pulmonary vasculatureappears normal. IMPRESSION: No acute chest disease identified. Ordered By: PATRIA DAMON Interpreted By: Michi Henry MD, 06/04/2024 10:09 AM Patria Damon DO GENERAL IMAGING Final Result * CULTURE, GENITAL W/ GRAM STAIN (06/04/2024 9:16 AM ORTHOTIC PRACTITIONER) SPEC DESCRIPTION VAGINAL SPECIMEN 06/04/2024 9:28 AM ORTHOTIC PRACTITIONER [facility] SPECIAL REQUESTS NO SPECIAL REQUEST 06/04/2024 9:28 AM ORTHOTIC PRACTITIONER [facility] GRAM STAIN RESULT NEGATIVE FOR BACTERIAL VAGINOSIS 06/05/2024 9:26 AM ORTHOTIC PRACTITIONER [facility] GRAM STAIN RESULT NO YEAST SEEN 06/05/2024 9:26 AM ORTHOTIC PRACTITIONER [facility] CULTURE RESULT HEAVY GROWTH OF NORMAL BRITTANY PRESENT 06/06/2024 8:55 AM [facility] VAGINAL STRUCTURE / Unknown 06/04/2024 9:16 AM ORTHOTIC PRACTITIONER 06/04/2024 9:14 PM ORTHOTIC PRACTITIONER Patria Damon DO MICROBIOLOGY - GENERAL ORDERA BLES Final Result Performing Organization Address City/State/[facility] Co de Phone Number [facility] [address] [place] [address], [facility] [address] [place] [address], [place] * (ABNORMAL) URINALYSIS AUTO DIP (06/04/2024 9:16 AM ORTHOTIC PRACTITIONER) SPECIMEN TYPE URINE CLEAN CATCH 06/04/2024 9:17 AM ORTHOTIC PRACTITIONER [facility] COLOR (U) YELLOW 06/04/2024 9:32 AM ORTHOTIC PRACTITIONER [facility] TRANSPARENCY CLEAR 06/04/2024 9:32 AM [facility] SPECIFIC GRAVITY (U) >1.030(H) 1.001 - 1.030 06/04/2024 9:32 AM ORTHOTIC PRACTITIONER [facility] U PH 6.5 5.0 - 9.0 06/04/2024 9:32 AM ORTHOTIC PRACTITIONER [facility] LEUKOCYTES (U) NEGATIVE NEGATIVE 06/04/2024 9:32 AM ORTHOTIC PRACTITIONER [facility] NITRITES NEGATIVE NEGATIVE 06/04/2024 9:32 AM ORTHOTIC PRACTITIONER [facility] PROTEIN RANDOM (U) NEGATIVE <30 MG/DL 06/04/2024 9:32 AM ORTHOTIC PRACTITIONER [facility] GLUCOSE (U) NEGATIVE NEGATIVE MG/DL 06/04/2024 9:32 AM ORTHOTIC PRACTITIONER [facility] KETONES MG/DL (U) NEGATIVE NEGATIVE MG/DL 06/04/2024 9:32 AM ORTHOTIC PRACTITIONER [facility] UROBILINOGEN 0.2(A) NEGATIVE MG/DL 06/04/2024 9:32 AM ORTHOTIC PRACTITIONER [facility] BILIRUBIN (U) NEGATIVE NEGATIVE MG/DL 06/04/2024 9:32 AM ORTHOTIC PRACTITIONER [facility] BLOOD (U) NEGATIVE NEGATIVE 06/04/2024 9:32 AM [facility] URINE SPECIMEN OBTAINED BY CLEAN CATCH PROCEDURE / Unknown 06/04/2024 9:16 AM ORTHOTIC PRACTITIONER us Patria Damon DO URINE ORDERABLES Final Result [facility] [place] [address], from Last 3 Months Insurance [facility] C/O PROVIDER [employer] [place] [id number] Advance Directives * Full Code (Latest Code Status on File) Date Activated Date Inactivated Comments 11/10/2022 7:35 PM 11/11/2022 7:53 PM * Full Code Date Activated Date Inactivated Comments 07/10/2021 8:13 PM 07/16/2021 3:42 AM Care Teams Coating Mixer Supervisor Relationship Specialty Start Date End Date Simone Valentine MD [address] [address] PCP - General OBGYN 11/10/22
--- OUTSIDE RECORDS SUMMARY | 2024-07-12 09:07 | XMS_ITS | Clinical Summary ---
Author Organization [facility] Address [address] [place] [address] Care Team Providers Care Pro Shop Attendant Name Role Phone Adelaide Beth Josefina ANAND-VISITOR SERVICES COORDINATOR Unavailable [phone] Source Comments [facility],non-owned Affiliates and Associated Physician Practices is amultiple site organization consisting of ambulatory clinics and hospital sitesin [place], [place], [place] and [place]. This disclosure is being madepursuant to the Care Everywhere program and may not contain all information available regarding this patient. Last updated 18.[facility] Allergies Active Allergy Reactions Criticality Noted Date Comments Estrogens Other High 12/18/2021 Blood Clots Medications * Be aware that medications may not be up to date on this document. Alwaysverify current medications with the patient. Medication Sig Dispensed Refills Start Date End Date Status albuterol HFA (Proventil; Ventolin; Proair) 108 (90 Base) MCG/ACT inhaler Inhale 2 (two) puffs by mouth every 6 hours as needed 07/19/2021 Active ibuprofen (Motrin) 600 MG tablet Take 1 (one) tablet by mouth every 6 hours 60 tablet 1 09/16/2023 Active Additional Information Patient taking differently:600 mg OralEVERY 6 HOURS PRN, Reported on 09/29/2023 omeprazole (PriLOSEC) 40 MG capsule Take 1 (one) capsule by mouth daily before breakfast 30 capsule 09/25/2023 Active metroNIDAZOLE vaginal (Metrogel - Vaginal) 0.75 % vaginal gelIndications:Chela terial vaginosis Insert 1 applicator into the vagina at bedtime 70 g 04/20/2024 Active Active Problems Problem Noted Date Diagnosed Date Iron deficiency anemia due to chronic blood loss 09/15/2023 History of pulmonary embolus (PE) 09/07/2023 Menorrhagia 08/08/2013 Overview (08/08/2013): 18 year old with on-going menstrual bleeding Assessment & Plan (08/08/2013 1:16 PM APPLICATION DESIGNER): Bleeding has been ongoing for 2-3 months, heavy with clots. PCP rx OCPs which did not help, though some question of correct usage. Obese, with some increased hirsutism, Plan: -CBC, LH, FSH, Free/Total T4, lipids, GC/Chlamydia - ovral BID until bleeding stops, then once daily - skip placebo pills of first pack of OCPs - return to clinic in 6-8 weeks Constipation 08/08/2013 Assessment & Plan (08/08/2013 1:17 PM APPLICATION DESIGNER): Usually goes 1-2 times each day. For the past several weeks going less often and stools are difficult to pass. Plan: - colace once daily - increased water Abdominal pain, LLQ (left lower quadrant) 2013 Anemia 08/08/2013 Screening examination for venereal disease 08/08 Obesity 08/08/2013 Encounters Date Type Department Care Team Description 06/27/2024 4:10 PM APPLICATION DESIGNER Office Visit [facility] VARIETY PERFORMER [address] [place] [address], [address] [place] [phone] Salvador Garcia MD Granulation tissue of vaginal cuff (Primary Dx) 06/27/2024 Travel 04/28/2024 4:00 PM APPLICATION DESIGNER Office Visit [facility] - VARIETY PERFORMER [address] [place] [address], [address] [place] [phone] Salvador Garcia MD Granulation tissue of vaginal cuff (Primary Dx) 04/28/2024 Travel 04/20/2024 Refill [facility] - VARIETY PERFORMER [address] [place] [address], [address] [place] [phone] Salvador Garcia MD Abnormal Results Follow Up 04/18/2024 3:00 PM APPLICATION DESIGNER Procedure visit [facility] - VARIETY PERFORMER [address] [place] [address], [address] [phone] Salvador Garcia MD STD exposure ; Granulation tissue of vaginal cuff; Family planning 04/18/2024 Travel from Last 3 Months Family History Medical History Relation Name Comments Obesity Mother Relation Name Status Comments Mother Social History Tobacco Use Types Packs/Day Years [...] Comments Blood Pressure 120/70 06/27/2024 4:05 PM APPLICATION DESIGNER Pulse 98 09/25/2023 10:55 PM CDT Temperature 36.8 ??C (98.2 ??F) 09/25/2023 5:42 PM CD T Respiratory Rate 18 09/25/2023 10:55 PM CDT Oxygen Saturation 98% 09/25/2023 10:55 PM CDT Inhaled Oxygen Concentration - - Weight 112.9 kg (249 lb) 06/27/2024 4:05 PM APPLICATION DESIGNER Height 162.6 cm (5' 4 ) 06/27/2024 4:05 PM APPLICATION DESIGNER Body Mass Index 42.74 06/27/2024 4:05 PM APPLICATION DESIGNER Plan of Treatment Upcoming Encounters Date Type Department Care Team (Late st Contact Info) Description 07/18/2024 4:10 PM APPLICATION DESIGNER Office Visit [facility] - VARIETY PERFORMER [address] [place] [address], [address] [phone] Salvador Garcia MD [address] [place] [phone] 08/11/2024 4:10 PM APPLICATION DESIGNER Office Visit [facility] - VARIETY PERFORMER [address] [place] [address], [address] [place] [address] Salvador Garcia MD [address] [facility] [address] [place] [address] Health Maintenance Due Date Last Done Comments DTAP/TDAP/TD VACCINES (1 - Tdap) 01/20/2016 HEPATITIS B VACCINE (1 of 3 - 19+ 3-dose series) 01/20/2016 COVID-19 VACCINE (1 - 2023-2 5 season) 2024 INFLUENZA VACCINE (#1) 2024 , 04/25/2015 DEPRESSION SCREENING 06/15/2024 09/07/2023, 11/17/2022 ZOSTER VACCINE (1 of 2) 2047 HEPATITIS C SCREENING Completed 04/18/2024 HIV SCREENING Completed 04/18/2024 HIB VACCINE Aged Out No longer eligi ble based on patient's age to complete this topic HPV VACCINE Aged Out No longer eligi ble based on patient's age to complete this topic MENINGOCOCCAL (Group B) VACCINE Aged Out No longer eligible b ased on patient's age to complete this topic MENINGOCOCCAL VACCINE Aged Out No betty lauren eligible based on patient's age to complete this topic PNEUMOCOCCAL VACCINE Aged Out No long er eligible based on patient's age to complete this topic Procedures Procedure Name Priority Date/Time Associated Diagnosis Comments HIV-1 HIV-2 ANTIBODY + HIV P24 AG PANEL Routine 04/18/2024 4:04 PM APPLICATION DESIGNER STD exposure HERPES SIMPLEX 1+2 AB IGG SPEC Routine 04/18/2024 4:04 PM APPLICATION DESIGNER STD exposure RPR Routine 04/18/2024 4:04 PM APPLICATION DESIGNER STD exposure HEPATITIS C ANTIBODY Routine 04/18/2024 4:04 PM APPLICATION DESIGNER STD exposure HEPATITIS B SURFACE ANTIGEN W RFLX CONFIRMATION Routine 04/18/2024 4:04 PM APPLICATION DESIGNER STD exposure VAGINITIS PLUS (BV CA CT NG TRICH) Routine 04/18/2024 3:48 PM APPLICATION DESIGNER STD exposure from Last 3 Months Results * HIV-1 HIV-2 ANTIBODY + HIV P24 AG PANEL (04/18/2024 4:04 PM APPLICATION DESIGNER) Pathologist [facility] HIV Screen 4th Generation w Reflex Non Reactive Non Reactive [facility] INSURANCE BILL Comment: HIV-1/HIV-2 antibodies and HIV-1 p24 antigen were NOT detected. There is no laboratory evidence of HIV infection. HIV Negative Blood BLOOD SPECIMEN / Unknown 04/18/2024 4:04 PM APPLICATION DESIGNER 04/18/2024 Narrative [facility] INSURANCE BILL - 04/19/2024 9:13 AM APPLICATION DESIGNER Performed at: ??01 - [address] ??[id number] Copy Chaser: Nick Yusuf PhD, Phone: ??[phone] Salvador Garcia MD LAB - CHEMISTRY ORD ERABLES [facility] INSURANCE BILL [address] [place] [address] * (ABNORMAL) HERPES SIMPLEX 1+2 AB IGG SPEC (04/18/2024 4:04 PM APPLICATION DESIGNER) [facility] Herpes Simplex Virus I Antibody IgG Type [...] BLOOD SPECIMEN / Unknown 04/18/2024 4:04 PM APPLICATION DESIGNER 04/18/2024 Narrative [facility] INSURANCE BILL - 04/19/2024 9:13 AM APPLICATION DESIGNER Performed at: ??01 - [facility] [address] ??[id number] Copy Chaser: Nick Yusuf PhD, Phone: ??[phone] Salvador Garcia MD LAB - SEROLOGY ORDE KELLI Performing Organization Address [facility]/ZIP Co de Phone Number [facility] INSURANCE BILL [address] [place] [address] * RPR (04/18/2024 4:04 PM APPLICATION DESIGNER) RPR Non Reactive Non Reactive [facility] INSURANCE BILL Blood BLOOD SPECIMEN / Unknown 04/18/2024 4:04 PM APPLICATION DESIGNER 04/18/2024 Narrative [facility] INSURANCE BILL - 04/19/2024 10:14 AM APPLICATION DESIGNER Performed at: ??01 - [facility] [address] ??[id number] Copy Chaser: Nick Yusuf PhD, Phone: ??[phone] Salvador Garcia MD LAB - CHEMISTRY ORD LESA Performing Organization Address [facility] de Phone Number [facility] INSURANCE BILL [address] [place] [address] * HEPATITIS B SURFACE ANTIGEN W RFLX CONFIRMATION (04/18/2024 4:04 PM APPLICATION DESIGNER) Hepatitis B Virus Surface Antigen Negative Negative [facility] INSURANCE BILL Blood BLOOD SPECIMEN / Unknown 04/18/2024 4:04 PM APPLICATION DESIGNER 04/18/2024 Narrative [facility] INSURANCE BILL - 04/19/2024 9:13 AM APPLICATION DESIGNER Performed at: ??01 - [facility] [address] ??[id number] Copy Chaser: Nick Yusuf PhD, Phone: ??[phone] Salvador Garcia MD LAB - CHEMISTRY ORD LESA Performing Organization Address City/[facility] Co de Phone Number [facility] INSURANCE BILL [address] [place] [address] * HEPATITIS C ANTIBODY (04/18/2024 4:04 PM APPLICATION DESIGNER) Hepatitis C Antibody Non Reactive Non Reactive [facility] INSURANCE BILL Comment: HCV antibody alone does not differentiate between previously resolved infection and active infection. Equivocal and Reactive HCV antibody results should be followed up with an HCV RNA test to support the diagnosis of active HCV infection. Blood BLOOD SPECIMEN / Unknown 04/18/2024 4:04 PM APPLICATION DESIGNER 04/18/2024 Narrative [facility] INSURANCE BILL - 04/19/2024 9:13 AM APPLICATION DESIGNER Performed at: ??01 - [facility] [address] [place], [place] ??[id number] Copy Chaser: Nick Yusuf PhD, Phone: ??[phone] Salvador Garcia MD LAB - CHEMISTRY ORD ERABLES [facility] INSURANCE BILL [address] [place] [address] * (ABNORMAL) VAGINITIS PLUS (BV CA CT NG TRICH) (04/18/2024 3:48 PM APPLICATION DESIGNER) Pathologist [facility] Atopobium vaginae Moderate - 1 Score [facility] [...] ENTIRE VAGINA / Unknown 04/18/2024 3:48 PM APPLICATION DESIGNER 04/18/2024 Comment:Vaginal Release to p a Narrative [facility] INSURANCE BILL - 04/20/2024 6:14 AM APPLICATION DESIGNER Test(s) 745894- ?Atopobium vaginae; 195548- ?BVAB 2; 404723- ?Megasphaera 1 was developed and its performance characteristics determined by [facility]. It has not been cleared or approved by the Food and Drug Administration. Test(s) 113098-Kvqbmpv albicans, RASHAD; 179442-Uthwyet glabrata, RASHAD was developed and its performance characteristics determined by [facility]. It has not been cleared or approved by the Food and Drug Administration. Performed at: ??01 - [facility] ??[id number] Copy Chaser: Jeny Glez MD, Phone: ??[phone] Salvador Garcia MD LAB - MICROBIOLOGY ORDERABLES [facility] INSURANCE BILL [address] [place] [address] from Last 3 Months Care Teams Pro Shop Attendant Relationship Specialty Start Date End Date Adelaide Beth, INPATIENT CARE MANAGER RN-VISITOR SERVICES COORDINATOR [address] [place] [address] PCP - Attributed-[employer] Medicaid [place] 04/15/19
--- OUTSIDE RECORDS SUMMARY | 2024-07-12 09:07 | XMS_ITS | Referral Summary ---
Author Organization [facility] Address [address] [place] [address] Care Team Providers Care Multimedia Specialist Name Role Phone Adelaide Beth Josefina ANAND-DISTRICT PLANT ENGINEER Unavailable [phone] Source Comments [facility],non-owned Affiliates and Associated Physician Practices is amultiple site organization consisting of ambulatory clinics and hospital sitesin [place], [place], [place] and [place]. This disclosure is being madepursuant to the Care Everywhere program and may not contain all information available regarding this patient. Last updated 18.[facility] Encounters Date Type Department Care Team Description 06/27/2024 Travel 06/27/2024 4:10 PM RETAIL CASHIER ASSOCIATE Office Visit [facility] - PUBLIC ADDRESS SYSTEM OPERATOR [address] [place] [address], [address] [phone] Salvador Garcia MD Granulation tissue of vaginal cuff (Primary Dx) 04/28/2024 Travel 04/28/2024 4:00 PM RETAIL CASHIER ASSOCIATE Office Visit [facility] - PUBLIC ADDRESS SYSTEM OPERATOR [address] [place] [address], [address] [phone] Salvador Garcia MD Granulation tissue of vaginal cuff (Primary Dx) 04/20/2024 Refill [facility] - PUBLIC ADDRESS SYSTEM OPERATOR [address] [place] [address], [address] [phone] Salvador Garcia MD Abnormal Results Follow Up 04/18/2024 Travel 04/18/2024 3:00 PM RETAIL CASHIER ASSOCIATE Procedure visit [facility] PUBLIC ADDRESS SYSTEM OPERATOR [address] [facility] [facility] [place] [address] Salvador Garcia MD STD exposure ; Granulation tissue of vaginal cuff; Family planning from Last 3 Months Allergies Active Allergy Reactions Criticality Noted Date [...] bleeding Assessment & Plan (08/08/2013 1:16 PM RETAIL CASHIER ASSOCIATE): Bleeding has been ongoing for 2-3 months, [...] 08/08/2013 Assessment & Plan (08/08/2013 1:17 PM RETAIL CASHIER ASSOCIATE): Usually goes 1-2 times each day. For [...] Comments Blood Pressure 120/70 06/27/2024 4:05 PM RETAIL CASHIER ASSOCIATE Pulse 98 09/25/2023 10:55 PM CDT Temperature 36.8 ??C (98.2 ??F) 09/25/2023 5:42 PM CD T Respiratory Rate 18 09/25/2023 10:55 PM CDT Oxygen Saturation 98% 09/25/2023 10:55 PM CDT Inhaled Oxygen Concentration - - Weight 112.9 kg (249 lb) 06/27/2024 4:05 PM RETAIL CASHIER ASSOCIATE Height 162.6 cm (5' 4 ) 06/27/2024 4:05 PM RETAIL CASHIER ASSOCIATE Body Mass Index 42.74 06/27/2024 4:05 PM RETAIL CASHIER ASSOCIATE Plan of Treatment Upcoming Encounters Date Type Department Care Team (Late st Contact Info) Description 07/18/2024 4:10 PM RETAIL CASHIER ASSOCIATE Office Visit [facility] - PUBLIC ADDRESS SYSTEM OPERATOR [address] [place] [address], [address] [address] Salvador Garcia MD [address] [place] [phone] 08/11/2024 4:10 PM RETAIL CASHIER ASSOCIATE Office Visit [facility] - PUBLIC ADDRESS SYSTEM OPERATOR [address] [place] [address], [address] [phone] Salvador Garcia MD [address] [facility] [address] [place] [address] Procedures Procedure Name Priority Date/Time Associated Diagnosis Comments HIV-1 HIV-2 ANTIBODY + HIV P24 AG PANEL Routine 04/18/2024 4:04 PM RETAIL CASHIER ASSOCIATE STD exposure HERPES SIMPLEX 1+2 AB IGG SPEC Routine 04/18/2024 4:04 PM RETAIL CASHIER ASSOCIATE STD exposure RPR Routine 04/18/2024 4:04 PM RETAIL CASHIER ASSOCIATE STD exposure HEPATITIS C ANTIBODY Routine 04/18/2024 4:04 PM RETAIL CASHIER ASSOCIATE STD exposure HEPATITIS B SURFACE ANTIGEN W RFLX CONFIRMATION Routine 04/18/2024 4:04 PM RETAIL CASHIER ASSOCIATE STD exposure VAGINITIS PLUS (BV CA CT NG TRICH) Routine 04/18/2024 3:48 PM RETAIL CASHIER ASSOCIATE STD exposure from Last 3 Months Results * HIV-1 HIV-2 ANTIBODY + HIV P24 AG PANEL (04/18/2024 4:04 PM RETAIL CASHIER ASSOCIATE) HIV Screen 4th Generation w Reflex Non Reactive Non Reactive [facility] INSURANCE BILL Comment: HIV-1/HIV-2 antibodies and HIV-1 p24 antigen were NOT detected. There is no laboratory evidence of HIV infection. HIV Negative Blood BLOOD SPECIMEN / Unknown 04/18/2024 4:04 PM RETAIL CASHIER ASSOCIATE 04/18/2024 Narrative [facility] INSURANCE BILL - 04/19/2024 9:13 AM RETAIL CASHIER ASSOCIATE Performed at: ??01 - [facility] [address] [place] [address] ??[id number] Household Appliance Assembler: Nick Yusuf PhD, Phone: ??[phone] Salvador Garcia MD LAB - CHEMISTRY ORD ERABLES [facility] INSURANCE BILL [address] [place] [address] * (ABNORMAL) HERPES SIMPLEX 1+2 AB IGG SPEC (04/18/2024 4:04 PM RETAIL CASHIER ASSOCIATE) Herpes Simplex Virus I Antibody IgG Type [...] BLOOD SPECIMEN / Unknown 04/18/2024 4:04 PM RETAIL CASHIER ASSOCIATE 04/18/2024 Narrative [facility] INSURANCE BILL - 04/19/2024 9:13 AM RETAIL CASHIER ASSOCIATE Performed at: ??01 - Lab[address] ??[id number] Household Appliance Assembler: Nick Yusuf PhD, Phone: ??[phone] Salvador Garcia MD LAB - SEROLOGY [facility] Organization Address City/State/ZIP Co de Phone Number [facility] INSURANCE BILL [address] [place] [address] * RPR (04/18/2024 4:04 PM RETAIL CASHIER ASSOCIATE) RPR Non Reactive Non Reactive [facility] INSURANCE BILL Blood BLOOD SPECIMEN / Unknown 04/18/2024 4:04 PM RETAIL CASHIER ASSOCIATE 04/18/2024 Narrative [facility] INSURANCE BILL - 04/19/2024 10:14 AM RETAIL CASHIER ASSOCIATE Performed at: ??01 - [address] ??[id number] Household Appliance Assembler: Nick Yusuf PhD, Phone: ??[phone] Salvador Garcia MD LAB - CHEMISTRY ORD ERABLES Performing Organization Address [facility] Co de Phone Number [facility] INSURANCE BILL [address] [place] [address] * HEPATITIS B SURFACE ANTIGEN W RFLX CONFIRMATION (04/18/2024 4:04 PM RETAIL CASHIER ASSOCIATE) Hepatitis B Virus Surface Antigen Negative Negative [facility] INSURANCE BILL Blood BLOOD SPECIMEN / Unknown 04/18/2024 4:04 PM RETAIL CASHIER ASSOCIATE 04/18/2024 Narrative [facility] INSURANCE BILL - 04/19/2024 9:13 AM RETAIL CASHIER ASSOCIATE Performed at: ??01 - [facility] ??[id number] Household Appliance Assembler: Nick Yusuf PhD, Phone: ??[phone] Salvador Garcia MD LAB - CHEMISTRY ORD ERABLES Performing Organization Address [facility] de Phone Number [facility] INSURANCE BILL [address] [place] [address] * HEPATITIS C ANTIBODY (04/18/2024 4:04 PM RETAIL CASHIER ASSOCIATE) Hepatitis C Antibody Non Reactive Non Reactive [facility] INSURANCE BILL Comment: HCV antibody alone does not differentiate between previously resolved infection and active infection. Equivocal and Reactive HCV antibody results should be followed up with an HCV RNA test to support the diagnosis of active HCV infection. Blood BLOOD SPECIMEN / Unknown 04/18/2024 4:04 PM RETAIL CASHIER ASSOCIATE 04/18/2024 Narrative [facility] INSURANCE BILL - 04/19/2024 9:13 AM RETAIL CASHIER ASSOCIATE Performed at: ?? - [facility] ??[id number] Household Appliance Assembler: Nick Yusuf PhD, Phone: ??[phone] Salvador Garcia MD LAB - CHEMISTRY ORD ERABLES Performing Organization Address City/[facility] Co de Phone Number [facility] INSURANCE BILL [address] [place] [address] * (ABNORMAL) VAGINITIS PLUS (BV CA CT NG TRICH) (04/18/2024 3:48 PM RETAIL CASHIER ASSOCIATE) Atopobium vaginae Moderate - 1 Score [facility] [...] ENTIRE VAGINA / Unknown 04/18/2024 3:48 PM RETAIL CASHIER ASSOCIATE 04/18/2024 Comment:Vaginal Release to p a Narrative [facility] INSURANCE BILL - 04/20/2024 6:14 AM RETAIL CASHIER ASSOCIATE Test(s) 358080- ?Atopobium vaginae; 843211- ?BVAB 2; 448279- ?Megasphaera 1 was developed and its performance characteristics determined by [facility]. It has not been cleared or approved by the Food and Drug Administration. Test(s) 987744-Zittcdl albicans, RASHAD; 796036-Imihwnn glabrata, RASHAD was developed and its performance characteristics determined by [facility]. It has not been cleared or approved by the Food and Drug Administration. Performed at: ??01 - Lab[address] ??[id number] Household Appliance Assembler: Jeny Glez MD, Phone: ??[phone] Salvador Garcia MD LAB - MICROBIOLOGY ORDERABLES [facility] INSURANCE BILL [address] [place] [address] from Last 3 Months Care Teams Multimedia Specialist Relationship Specialty Start Date End Date Adelaide Beth, RECONCILIATION MANAGER-DISTRICT PLANT ENGINEER [address] [place] [address] PCP - Attributed-[facility] Medicaid [place] 04/15/19
--- OUTSIDE RECORDS SUMMARY | 2024-07-12 09:07 | XMS_ITS | Clinical Summary ---
Author Organization [facility] Address [address] [place] [phone] Phone Care Team Providers Care Pc Installation Engineer Name Role Phone Provider, None Primary Care Provider Unavailabl e Social History Tobacco Use Types Packs/Day Years Used Date Smoking Tobacco: Never Assessed Comments Unknown Sex and Gender Information Value Date Recorded Sex Assigned at Not on file Legal Sex Female 3:55 PM CLERK GENERAL OFFICE Gender Identity Not on file Sexual Orientation Not on file Plan of Treatment Health Maintenance Due Date Last Done Comments Hepatitis C Virus (HCV) Screening 1997 TdaP Immunization 1997 Hepatitis B Immunization (1 of 3 - 19+ 3-dose series) 01/20/2016 Pap Smear 2018 Influenza Immunization (#1) 2024 SARS-COV-2 Immunization ( season) 2024 Respiratory Syncytial Virus (RSV) Immunization (Adult) (1 - 1-dose 75+ series) 01/20/2072 Meningococcal Immunization (ACWY) Aged Out No longer eligible based on patient's age to complete this topic Pneumococcal Immunization Combined Aged Out No longer eligible based on patient's age to complete this topic Rotavirus Immunization Aged Out No lo nger eligible based on patient's age to complete this topic Care Teams Pc Installation Engineer Relationship Specialty Start Date End Date Provider, None [place] PCP - General 06/11/23
[2024-07-12 09:08] LABS: Basophils Percent Auto 0.5 % (0.2-1.2); Hematocrit 42.9 % (37.0-47.0); Hemoglobin 13.5 g/dL (12.0-15.0); Immature Granulocyte Absolute 0.02 K/mm3 (0.00-0.031); Immature Granulocyte Percent A 0.3 % (0-0.5); Lymphocytes Absolute Auto 0.75 K/mm3 (0.9-3.2); Lymphocytes Percent Auto 11.5 % (18.3-44.2); Mean Corpuscular HGB Conc 31.5 g/dl (32-36); Mean Corpuscular Hemoglobin 25.9 pg (26-34); Mean Corpuscular Volume 82.3 fl (80-100); Mean Platelet Volume 10.3 fl (7.4-10.4); Monocytes Absolute Auto 0.9 K/mm3 (0.1-0.6); Monocytes Percent Auto 13.4 % (2.6-8.5); Neutrophils Absolute Auto 4.8 K/mm3 (1.3-6.7); Neutrophils Percent Auto 74.3 % (45.5-73.1); Platelet Count Result 183 k/mm3 (150-375); Red Blood Count 5.21 M/mm3 (4.2-5.4); Red Cell Distribution Width 15.1 % (11.5-14.5); White Blood Count 6.5 K/mm3 (4.5-10.0)
[2024-07-12 09:19] LABS: Alanine Aminotransferase 30 U/L (6-35); Albumin Level 4.2 g/dL (3.5-5.1); Alkaline Phosphatase 80 U/L (38-126); Anion Gap 9 mmol/L (4-12); Aspartate Amino Transferase 30 U/L (14-36); Bilirubin,Total 0.6 mg/dL (0.2-1.3); Blood Urea Nitrogen 9 mg/dL (7-17); Calcium 8.9 mg/dL (8.4-10.2); Carbon Dioxide 26 mmol/L (22-30); Chloride 101 mmol/L (98-107); Estimated CRCL calculation 106 ml/min; Estimated Glomerular Filt Rate > 60; Glucose 90 mg/dL (65-110); Lipase 71 U/L (23-300); Potassium 4.2 mmol/L (3.4-5.0); Sodium 136 mmol/L (137-145)
[2024-07-12 09:34] LABS: Add Urine Microscopic? YES; Appearance Urine Cloudy (Clear); Bacteria Urine 1+ /hpf; Bilirubin Urine Negative (Negative); Blood Urine Non-Hemolyzed Trace (Negative); Color Urine Yellow (Yellow); Glucose Urine UA Negative (Negative); Ketones Urine Negative (Negative); Leukocyte Esterase Ur Negative LEU/UL (Negative); Nitrate Urine Negative (Negative); Non Pathogenic Casts 0-2; Protein Urine Negative (Negative); Specific Grav Ur 1.021 (1.001-1.035); Squamous Epithelial Cell Urine Moderate /hpf (Few); WBC Urine 0-5 /hpf (0-3); pH Urine 7.5 (5.0-9.0)
[2024-07-12 10:13] LABS: INR 1.1; Prothrombin Time 14.3 Seconds (11.1-14.7)
[2024-07-12 10:14] LABS: Partial Thromboplastin Time 21.4 Seconds (22.3-36.8)
[2024-07-12 11:00] VITALS: BP 131/84; PULSE 80; RESP 16; O2SAT 100
== END 2024-07-12 11:05 | disposition home or self-care (01) ==
PROVIDERS: Emergency Provider Emergency Medicine
DX: U07.1 COVID-19 (principal); R11.2 Nausea with vomiting, unspecified; R19.7 Diarrhea, unspecified; R31.9 Hematuria, unspecified
CPT/HCPCS: 36415; 71275; 74177; 80053; 81001; 83605; 83690; 85025; 85610; 85730; 87637; 96361; 96374; 96375; 99284; J1171; J2405; J7030; Q9967